=== PATIENT | female | born 1975 | race Caucasian/White ===

== ENCOUNTER 2016-10-18 16:51 | Inpatient (IN) | payer OTHER ==
[~2016-10-18] VITALS: Ht 160 cm; Wt 109.1 kg
[~2016-10-18 16:51] MED LIST: DOXY100T35 PO; DTRSR/10 PO; FLUO20CA36 PO; GLCSR/500 PO; GLIP-199 PO; MOME50SP5; MULT1CHW18 PO; NORGTAB3 PO; PANT40TA2 PO; TPRSR/50 PO; ZCR40 PO
[2016-10-18] MEDS ORDERED: NALOXONE HCL 0.4 MG/1 ML VIAL/CARP IV STA (17:04)
[2016-10-18] MEDS ORDERED: SODIUM CHLORIDE 0.9% 1000ML 1,000 ML IV STA (17:04)
[2016-10-18] MEDS ORDERED: METF750T PO (17:51)
[2016-10-18] MEDS ORDERED: OMEP40CA41 PO (17:51)
[2016-10-18] MEDS ORDERED: NVLNI SQ (17:51)
[2016-10-18] MEDS ORDERED: FENO54TA PO (17:51)
[2016-10-18 17:59] LABS: BASO % 0.2 %; BASO ABS # 0.02 K/uL (0-0.2); COMPLETE YES; EOS % 2.4 %; HEMATOCRIT 38.3 % (37-47); IG% 0.3 %; LYMPH % 18.3 %; LYMPH ABS # 2.12 K/uL (1.2-3.4); MEAN CELL VOLUME 92.3 fL (80-100); MEAN CORPUSCULAR HEMOGLOBIN 30.6 pg (25-34); MEAN CORPUSCULAR HGB CONC 33.2 g/dl (32-36); MEAN PLATELET VOLUME 11.4 fL (7.4-10.4); MONO % 5.2 %; NEUT % 73.6 %; PLATELET COUNT 216 K/uL (130-400); RED BLOOD COUNT 4.15 M/uL (4.2-5.4); WHITE BLOOD COUNT 11.59 K/uL (4.8-10.8)
[2016-10-18 18:03] LABS: BENZODIAZEPINE, URINE NEG (NEG); COCAINE,URINE NEG (NEG); PHENCYCLIDINE, URINE NEG (NEG)
[2016-10-18 18:09] LABS: INR 1.1 (0.9-1.1); PARTIAL THROMBOPLASTIN RATIO 0.8; PROTHROMBIN TIME (PATIENT) 11.3 SECONDS (9.0-12.0)
--- NOTE | 2016-10-18 18:13 | DIAGNOSTIC IMAGING REPORT ---
SINGLE VIEW CHEST CLINICAL HISTORY: Overdose. FINDINGS: An AP, portable, upright chest radiograph is compared to study dated 10/11/2013 and correlated with chest CT dated 10/09/2011. The examination is severely degraded by portable technique, large body habitus, and patient rotation. The heart appears enlarged. There is mild pulmonary vascular congestion. There are low lung volumes. Bibasilar airspace opacities likely represent atelectasis. Trace pleural effusions are suspected. The lungs and pleural spaces are clear. No pneumothorax is seen. The bony thorax is grossly intact. IMPRESSION: 1. Cardiac enlargement with mild pulmonary vascular congestion. 2. Trace pleural effusions are suspected. 3. Low lung volumes with bibasilar airspace opacities. This likely represents atelectasis. Clinical correlation will be required. Electronically signed by: Mike Jacob M.D. 10/18/2016 6:11 PM Dictated Date/Time: 10/18/2016 6:09 PM
[2016-10-18 18:19] LABS: ACETAMINOPHEN < 2 ug/ml (10-30)
[2016-10-18 18:20] LABS: ALT/SGPT 77 U/L (12-78); AST/SGOT 87 U/L (15-37); BLOOD UREA NITROGEN 10 mg/dl (7-18); BUN/CREATININE RATIO 10.1 (10-20); CALCIUM 8.4 mg/dl (8.5-10.1); CARBON DIOXIDE 29 mmol/L (21-32); CHLORIDE 104 mmol/L (98-107); CREATININE 0.95 mg/dl (0.60-1.20); GLUCOSE 261 mg/dl (70-99); POTASSIUM 3.8 mmol/L (3.5-5.1); SODIUM 141 mmol/L (136-145)
[2016-10-18 18:25] LABS: ALKALINE PHOSPHATASE 92 U/L (45-117); CKMB/CK RATIO 0.9 (0-3.0)
[2016-10-18 18:34] LABS: PREG INTERNAL NEGATIVE QC NEG CLEAR BACKGROUND; PREG INTERNAL POSITIVE QC POS CONTROL LINE
[2016-10-18] MEDS ORDERED: MAGNESIUM HYDROXIDE SUSP 30 ML UDC PO PRN (19:45)
[2016-10-18] MEDS ORDERED: ONDANSETRON INJ 2 MG/ML 2 ML VIAL IV PRN (19:45)
[2016-10-18] MEDS ORDERED: ACETAMINOPHEN 325 MG TAB PO PRN (19:45)
[2016-10-18] MEDS ORDERED: ALUMINUM/MAGNESIUM/SIMETH (MAALOX MAX) 30 ML UDC PO PRN (19:45)
--- NOTE | 2016-10-18 19:57 | EMERGENCY ROOM VISIT NOTE ---
History Report prepared by Selene: Chase West Under the Supervision of: Dr. Sukhdev Valle D.O. First contact with patient: 16:53 Chief Complaint: OVERDOSE (ACCIDENTAL) Stated Complaint: OVERDOSE, VOMITING History of Present Illness The patient is a 41 year old female who presents to the Emergency Room with complaints of an overdose occurring around 1400. Per the nursing staff, the patient smoked an unknown synthetic marijuana that was given to her by neighbor , and it is called "legal". Per the nursing staff, the patient was found in her home laying down in her own vomit, and she smoked it around 1400. The nursing staff additionally states that the patient is diabetic, and her sugar was 249. Additionally the patient is complaining of heart burn, chest pain, and drowsiness. Source of History: patient, nursing staff Onset: 1400 Position: other (global) Quality: other (overdose) Associated Symptoms: + chest pain, + fatigue Review of Systems See HPI for pertinent positives & negatives. A total of 10 systems reviewed and were otherwise negative. Past Medical & Surgical Medical Problems: (1) Depression (2) Diabetes (3) Drug overdose (4) GERD (gastroesophageal reflux disease) (5) IBS (irritable bowel syndrome) Family History Cancer Diabetes mellitus Heart disease Social History Smoking Status: Never Smoker Alcohol Use: none Marital Status: single Housing Status: lives with family Occupation Status: employed Current/Historical Medications Scheduled Fenofibrate (Tricor), 54 MG PO QPM Fluoxetine HCl (Fluoxetine HCl), 40 MG PO HS Glipizide (Glipizide Er), 10 MG PO DAILY Insulin Human NPH (Novolin N), 28 UNITS SQ BID Metformin Hcl (Glucophage Er), 750 MG PO DAILY Metoprolol Succinate (Metoprolol Succinate ER), 50 MG PO DAILY Omeprazole (Prilosec), 40 MG PO QPM Oxybutynin Chloride (Oxybutynin Chloride ER), 10 MG PO DAILY Simvastatin (Simvastatin), 20 MG PO HS Scheduled PRN Mometasone Furoate (Nasonex), 2 SPRAYS NA DAILY PRN for Allergies Allergies Coded Allergies: Cephalosporins (Verified Allergy, Unknown, ., 10/18/16) Erythromycin (Verified Allergy, Unknown, ., 10/18/16) Propoxyphene (Verified Allergy, Unknown, ., 10/18/16) Codeine (Verified Adverse Reaction, Mild, UPSET STOMACH, 10/18/16) Physical Exam Vital Signs Date Time Temp Pulse Resp B/P Pulse Ox O2 Delivery O2 Flow Rate FiO2 10/18/16 19:53 83 18 125/74 98 Nasal Cannula 3.0 10/18/16 19:07 81 18 99/80 97 Nasal Cannula 3.0 10/18/16 18:07 91 18 104/82 96 Room Air 3.0 10/18/16 17:11 90 10/18/16 17:07 93 Nasal Cannula 3.0 10/18/16 17:03 96 Nasal Cannula 4.0 10/18/16 16:55 36.6 100 18 112/75 88 Room Air Physical Exam CONSTITUTIONAL/VITAL SIGNS: Reviewed / noted above. GENERAL: Sedated but responds to verbal stimuli. Falls asleep easily. Vomit is noted on the patient. Non-toxic in appearance. INTEGUMENTARY: Warm, dry, and [place]. HEAD: Normocephalic. EYES: Pupils are 5mm and sluggish to respond to light. without scleral icterus or trauma. ENT/OROPHARYNX: clear and moist. LYMPHADENOPATHY/NECK: Is supple without lymphadenopathy or meningismus. RESPIRATORY: Lungs clear and equal. CARDIOVASCULAR: Regular rate and rhythm. GI/ABDOMEN: Soft and nontender. No organomegaly or pulsatile mass. No rebound or guarding. Normal bowel sounds. EXTREMITIES: Warm and well perfused. BACK: No CVA tenderness. NEUROLOGICAL: Intact without focal deficits. PSYCHIATRIC: normal affect. MUSCULOSKELETAL: Normally developed with good muscle tone. Medical Decision & Procedures ER Provider Diagnostic Interpretation: X ray results and stated below per my interpretation and radiology interpretation. SINGLE VIEW CHEST CLINICAL HISTORY: Overdose. FINDINGS: An AP, portable, upright chest radiograph is compared to study dated 10/11/2013 and correlated with chest CT dated 10/09/2011. The examination is severely degraded by portable technique, large body habitus, and patient rotation. The heart appears enlarged. There is mild pulmonary vascular congestion. There are low lung volumes. Bibasilar airspace opacities likely represent atelectasis. Trace pleural effusions are suspected. The lungs and pleural spaces are clear. No pneumothorax is seen. The bony thorax is grossly intact. IMPRESSION: 1. Cardiac enlargement with mild pulmonary vascular congestion. 2. Trace pleural effusions are suspected. 3. Low lung volumes with bibasilar airspace opacities. This likely represents atelectasis. Clinical correlation will be required. Electronically signed by: Mike Jacob M.D. 10/18/2016 6:11 PM Dictated Date/Time: 10/18/2016 6:09 PM Laboratory Results 10/18/16 17:39 Red Blood Count 4.15, Mean Corpuscular Volume 92.3, Mean Corpuscular Hemoglobin 30.6, Mean Corpuscular Hemoglobin Concent 33.2, Mean Platelet Volume 11.4, Neutrophils (%) (Auto) 73.6, Lymphocytes (%) (Auto) 18.3, Monocytes (%) (Auto) 5.2, Eosinophils (%) (Auto) 2.4, Basophils (%) (Auto) 0.2, Neutrophils # (Auto) 8.54, Lymphocytes # (Auto) 2.12, Monocytes # (Auto) 0.60, Eosinophils # (Auto) 0.28, Basophils # (Auto) 0.02 10/18/16 17:39 Test 10/18/16 17:30 10/18/16 17:39 Urine Opiates Screen NEG (NEG) Urine Methadone, Qualitative NEG (NEG) Urine Barbiturates NEG (NEG) Urine Phencyclidine (PCP) Level NEG (NEG) Ur Amphetamine/Methamphetamine NEG (NEG) MDMA (Ecstasy) Screen NEG (NEG) Urine Benzodiazepines Screen NEG (NEG) Urine Cocaine Metabolite NEG (NEG) Urine Marijuana (THC) POS (NEG) White Blood Count 11.59 K/uL (4.8-10.8) Red Blood Count 4.15 M/uL (4.2-5.4) Hemoglobin 12.7 g/dL (12.0-16.0) Hematocrit 38.3 % (37-47) Mean Corpuscular Volume 92.3 fL (80-100) Mean Corpuscular Hemoglobin 30.6 pg (25-34) Mean Corpuscular Hemoglobin Concent 33.2 g/dl (32-36) Platelet Count 216 K/uL (130-400) Mean Platelet Volume 11.4 fL (7.4-10.4) Neutrophils (%) (Auto) 73.6 % Lymphocytes (%) (Auto) 18.3 % Monocytes (%) (Auto) 5.2 % Eosinophils (%) (Auto) 2.4 % Basophils (%) (Auto) 0.2 % Neutrophils # (Auto) 8.54 K/uL (1.4-6.5) Lymphocytes # (Auto) 2.12 K/uL (1.2-3.4) Monocytes # (Auto) 0.60 K/uL (0.11-0.59) Eosinophils # (Auto) 0.28 K/uL (0-0.5) Basophils # (Auto) 0.02 K/uL (0-0.2) RDW Standard Deviation 45.7 fL (36.4-46.3) RDW Coefficient of Variation 13.6 % (11.5-14.5) Immature Granulocyte % (Auto) 0.3 % Immature Granulocyte # (Auto) 0.03 K/uL (0.00-0.02) Prothrombin Time 11.3 SECONDS (9.0-12.0) Prothromb Time International Ratio 1.1 (0.9-1.1) Activated Partial Thromboplast Time 21.5 SECONDS (21.0-31.0) Partial Thromboplastin Ratio 0.8 Anion Gap 8.0 mmol/L (3-11) Est Creatinine Clear Calc Drug Dose 82.3 ml/min Estimated GFR () 85.0 Estimated GFR (Non- 73.4 BUN/Creatinine Ratio 10.1 (10-20) Calcium Level 8.4 mg/dl (8.5-10.1) Total Bilirubin 0.3 mg/dl (0.2-1) Direct Bilirubin < 0.1 mg/dl (0-0.2) Aspartate Amino Transf (AST/SGOT) 87 U/L (15-37) Alanine Aminotransferase (ALT/SGPT) 77 U/L (12-78) Alkaline Phosphatase 92 U/L (45-117) Total Creatine Kinase 277 U/L (26-192) Creatine Kinase MB 2.4 ng/ml (0.5-3.6) Creatine Kinase MB Ratio 0.9 (0-3.0) Troponin I < 0.015 ng/ml (0-0.045) Total Protein 6.9 gm/dl (6.4-8.2) Albumin 3.0 gm/dl (3.4-5.0) Lipase 98 U/L (73-393) Human Chorionic Gonadotropin, Qual NEG (NEG) Salicylates Level < 1.7 mg/dl (2.8-20) Acetaminophen Level < 2 ug/ml (10-30) Ethyl Alcohol mg/dL < 3.0 mg/dl (0-3) Laboratory results as stated above per my review. Medications Administered Medications (Trade) Dose Ordered Sig/Sheela Route Start Time Stop Time Status Last Admin Dose Admin Sodium Chloride (Nss 1000ml) 1,000 ml @ 200 mls/hr Q5H STAT IV 10/18/16 17:04 10/18/16 22:03 10/18/16 17:22 200 MLS/HR Naloxone HCl (Narcan Inj) 0.8 mg NOW STAT IV 10/18/16 17:04 10/18/16 17:08 DC 10/18/16 17:22 0.8 MG ECG Indication: other (overdose) Rate (beats per minute): 100 Rhythm: normal sinus Findings: no ectopy, other (No injury) ED Course 1652: Previous medical records were reviewed. The patient was evaluated in room B11. A complete history and physical examination was performed. 1704: Narcan Inj 0.8mg IV, Sodium Chloride 1000 ml @ 200 mls/hr IV 1845: I discussed the patient's case with Dr. Santiago. He is going to evaluate the patient for further treatment 1850: I reevaluated the patient, and she was resting. Medical Decision Differential diagnosis: Etiologies such as metabolic, infection, hypoglycemia, electrolyte abnormalities , cardiac sources, intracerebral event, toxicologic, neurologic, as well as others were entertained. This is a 41-year-old female who presents to the ED with a chief complaint of a possible overdose. The patient states that she smoked something that her neighbor gave her something called "legal". Following this the patient was found on the floor and vomitus around 2 PM. She was brought here by EMS. She was given IV fluids and IV Zofran. Blood sugar here was 249. Pulse ox was 87% on room air. She did complain of some heartburn according to the nurse and EMS. She felt drowsy. The patient's exam reveals 5 mm pupils that were slightly sluggish to reaction. The patient is drowsy and sleepy but awakens to verbal stimuli and answers questions appropriately. She denies any headache or trauma. No abdominal pains or shortness of breath. A twelve-lead EKG reveals normal sinus rhythm. CBC was unremarkable. Tox screen was positive for marijuana. Alcohol is negative. Tylenol salicylates are negative. The patient was told the results of the test. She is still drowsy and becomes hypoxic off of oxygen. She will be seen by the hospitalist service for further inpatient evaluation and care. Consults Time Called: 1839 Consulting Physician: Dr. Santiago Returned Call: [phone] I discussed the patient's case with Dr. Santiago. He is going to evaluate the patient for further treatment Impression Primary Impression: Overdose Additional Impressions: Hypoxia Respiratory failure Scribe Attestation The scribe's documentation has been prepared under my direction and personally reviewed by me in its entirety. I confirm that the note above accurately reflects all work, treatment, procedures, and medical decision making performed by me. Departure Information Dispostion Being Evaluated By Hospitalist Referrals Paramjit Marinelli M.D. (PCP) Problem Qualifiers
[2016-10-18] MEDS: SODIUM CHLORIDE 0.9% 1000ML 1,000 ML IV SCH (20:15)
--- NOTE | 2016-10-18 20:25 | History and Physical ---
History & Physical Date & Time of Service: Oct 18, 2016 at 20:22 Chief Complaint: Overdose, Vomiting Primary Care Physician: Paramjit Marinelli M.D. History of Present Illness Source: patient 41-year-old female with past medical history of diabetes, depression, GERD, IBS presented with an accidental overdose of synthetic marijuana about 2 PM this afternoon. She was found laying in her own vomit and her blood sugar was 249. Currently she is drowsy but is oriented 3. She denies any chest pain, palpitations, shortness of breath, nausea, vomiting, abdominal pain. She said she initially had chest pain on presentation but is now resolved. Denies any headaches, weakness, numbness tingling, hematuria, body aches. Past Medical/Surgical History Medical Problems: (1) Depression Status: Chronic (2) Diabetes Status: Chronic (3) GERD (gastroesophageal reflux disease) Status: Chronic (4) IBS (irritable bowel syndrome) Status: Chronic Family History Cancer Diabetes mellitus Heart disease Social History Smoking Status: Never Smoker Marital Status: single Occupational Status: employed Immunizations History of Influenza Vaccine: Yes History of Tetanus Vaccine?: Yes History of Pneumococcal: No History of Hepatitis B Vaccine: Unknown Allergies Coded Allergies: Cephalosporins (Verified Allergy, Unknown, ., 10/18/16) Erythromycin (Verified Allergy, Unknown, ., 10/18/16) Propoxyphene (Verified Allergy, Unknown, ., 10/18/16) Codeine (Verified Adverse Reaction, Mild, UPSET STOMACH, 10/18/16) Home Medications Scheduled Fenofibrate (Tricor), 54 MG PO QPM Fluoxetine HCl (Fluoxetine HCl), 40 MG PO HS Glipizide (Glipizide Er), 10 MG PO DAILY Insulin Human NPH (Novolin N), 28 UNITS SQ BID Metformin Hcl (Glucophage Er), 750 MG PO DAILY Metoprolol Succinate (Metoprolol Succinate ER), 50 MG PO DAILY Omeprazole (Prilosec), 40 MG PO QPM Oxybutynin Chloride (Oxybutynin Chloride ER), 10 MG PO DAILY Simvastatin (Simvastatin), 20 MG PO HS Scheduled PRN Mometasone Furoate (Nasonex), 2 SPRAYS NA DAILY PRN for Allergies Review of Systems Constitutional: No chills, No fever Eyes: No worsening of vision ENT: No hearing loss Respiratory: No cough, No sputum Cardiovascular: + chest pain (now resolved) Abdomen: + vomiting, No nausea, No pain Genitourinary - Female: No dysuria, No hematuria, No urinary frequency Neurologic: No memory loss Psychiatric: No depression symptoms Endocrine: No fatigue Integumentary: No rash Physical Exam Vital Signs Date Time Temp Pulse Resp B/P Pulse Ox O2 Delivery O2 Flow Rate FiO2 10/18/16 19:53 83 18 125/74 98 Nasal Cannula 3.0 10/18/16 19:07 81 18 99/80 97 Nasal Cannula 3.0 10/18/16 18:07 91 18 104/82 96 Room Air 3.0 10/18/16 17:11 90 10/18/16 17:07 93 Nasal Cannula 3.0 10/18/16 17:03 96 Nasal Cannula 4.0 10/18/16 16:55 36.6 100 18 112/75 88 Room Air General Appearance: WD/WN, no apparent distress Head: normocephalic Eyes: + pertinent finding (dilated pupils, sluggish) ENT: normal ENT inspection, hearing grossly normal Neck: supple Respiratory/Chest: chest non-tender, lungs clear, normal breath sounds, no respiratory distress, no accessory muscle use Cardiovascular: + tachycardia Abdomen/GI: normal bowel sounds, non tender, soft Back: normal inspection Extremities/Musculoskelatal: normal inspection, no pedal edema Neurologic/Psych: + pertinent finding (drowsy) Skin: normal color Diagnostics Laboratory Results Results Past 24 Hours Test 10/18/16 17:30 10/18/16 17:39 Range/Units Urine Opiates Screen NEG NEG Urine Methadone, Qualitative NEG NEG Urine Barbiturates NEG NEG Urine Phencyclidine (PCP) Level NEG NEG Ur Amphetamine/Methamphetamine NEG NEG MDMA (Ecstasy) Screen NEG NEG Urine Benzodiazepines Screen NEG NEG Urine Cocaine Metabolite NEG NEG Urine Marijuana (THC) POS NEG White Blood Count 11.59 4.8-10.8 K/uL Red Blood Count 4.15 4.2-5.4 M/uL Hemoglobin 12.7 12.0-16.0 g/dL Hematocrit 38.3 37-47 % Mean Corpuscular Volume 92.3 80-100 fL Mean Corpuscular Hemoglobin 30.6 25-34 pg Mean Corpuscular Hemoglobin Concent 33.2 32-36 g/dl Platelet Count 216 130-400 K/uL Mean Platelet Volume 11.4 7.4-10.4 fL Neutrophils (%) (Auto) 73.6 % Lymphocytes (%) (Auto) 18.3 % Monocytes (%) (Auto) 5.2 % Eosinophils (%) (Auto) 2.4 % Basophils (%) (Auto) 0.2 % Neutrophils # (Auto) 8.54 1.4-6.5 K/uL Lymphocytes # (Auto) 2.12 1.2-3.4 K/uL Monocytes # (Auto) 0.60 0.11-0.59 K/uL Eosinophils # (Auto) 0.28 0-0.5 K/uL Basophils # (Auto) 0.02 0-0.2 K/uL RDW Standard Deviation 45.7 36.4-46.3 fL RDW Coefficient of Variation 13.6 11.5-14.5 % Immature Granulocyte % (Auto) 0.3 % Immature Granulocyte # (Auto) 0.03 0.00-0.02 K/uL Prothrombin Time 11.3 9.0-12.0 SECONDS Prothromb Time International Ratio 1.1 0.9-1.1 Activated Partial Thromboplast Time 21.5 21.0-31.0 SECONDS Partial Thromboplastin Ratio 0.8 Sodium Level 141 136-145 mmol/L Potassium Level 3.8 3.5-5.1 mmol/L Chloride Level 104 98-107 mmol/L Carbon Dioxide Level 29 21-32 mmol/L Anion Gap 8.0 3-11 mmol/L Blood Urea Nitrogen 10 7-18 mg/dl Creatinine 0.95 0.60-1.20 mg/dl Est Creatinine Clear Calc Drug Dose 82.3 ml/min Estimated GFR () 85.0 Estimated GFR (Non- 73.4 BUN/Creatinine Ratio 10.1 10-20 Random Glucose 261 70-99 mg/dl Calcium Level 8.4 8.5-10.1 mg/dl Total Bilirubin 0.3 0.2-1 mg/dl Direct Bilirubin < 0.1 0-0.2 mg/dl Aspartate Amino Transf (AST/SGOT) 87 15-37 U/L Alanine Aminotransferase (ALT/SGPT) 77 12-78 U/L Alkaline Phosphatase 92 45-117 U/L Total Creatine Kinase 277 26-192 U/L Creatine Kinase MB 2.4 0.5-3.6 ng/ml Creatine Kinase MB Ratio 0.9 0-3.0 Troponin I < 0.015 0-0.045 ng/ml Total Protein 6.9 6.4-8.2 gm/dl Albumin 3.0 3.4-5.0 gm/dl Lipase 98 73-393 U/L Human Chorionic Gonadotropin, Qual NEG NEG Salicylates Level < 1.7 2.8-20 mg/dl Acetaminophen Level < 2 10-30 ug/ml Ethyl Alcohol mg/dL < 3.0 0-3 mg/dl Diagnostic Radiology [~ rep ct add3]] SINGLE VIEW CHEST CLINICAL HISTORY: Overdose. FINDINGS: An AP, portable, upright chest radiograph is compared to study dated 10/11/2013 and correlated with chest CT dated 10/09/2011. The examination is severely degraded by portable technique, large body habitus, and patient rotation. The heart appears enlarged. There is mild pulmonary vascular congestion. There are low lung volumes. Bibasilar airspace opacities likely represent atelectasis. Trace pleural effusions are suspected. The lungs and pleural spaces are clear. No pneumothorax is seen. The bony thorax is grossly intact. IMPRESSION: 1. Cardiac enlargement with mild pulmonary vascular congestion. 2. Trace pleural effusions are suspected. 3. Low lung volumes with bibasilar airspace opacities. This likely represents atelectasis. Clinical correlation will be required. Impression Assessment and Plan Documented By: Lanre Santiago 41-year-old female with past medical history of diabetes, depression, GERD, IBS presented with an accidental overdose of synthetic marijuana about 2 PM this afternoon. She was found laying in her own vomit . Accidental overdose with synthetic marijuana: - Received Narcan in the ER - IV fluids - Electrolytes within normal limits - UDS positive for marijuana - CK elevated at 277, monitor every 8 hours - Zofran for nausea/ vomiting Hyperglycemia: - Blood sugars at 261 - Hold home meds - ISS Depression: Continue fluoxetine GERD: Continue Home meds DVT prophylaxis: SCDs. Full code Disposition: admitted to telemetry Resident Physician Supervision Note: Pt examined independently. I discussed the case with the resident and agree with the findings and plan as documented in the note. Any exceptions or clarifications are listed here: Pt was admittedly semiconscious when I saw her - states that she smoked synthetic marijuana under duress from a persuasive neighbor. She was found unconscious by a boyfriend a few hours later. She appears to be improving and does not display psychosis so that we would consider d/c after a short stay OE Somnolent S1,2 reg CTAB, NT, ND, BS+ NO C/C/E P: Monitor until regains consciousness and we would then consider D/C Placed on sliding scale for DM Cont Fluoxetine for depression Level of Care Telemetry Resuscitation Status FULL RESUSCITATION VTE Prophylaxis VTE Risk Assessment Done? Y/N: Yes Risk Level: Moderate Given or contraindicated: SCD's Resident Tracking Resident Involvement: Resident Care Provided Care Provided: Adult Hospital Medicine Resident Tracking Resident Involvement: Resident Care Provided Care Provided: Adult Hospital Medicine
[2016-10-18] MEDS ORDERED: PHARMACY GLYCEMIC MGMT CONSULT PRN (20:46)
[2016-10-18] MEDS ORDERED: GLUCOSE 40% GEL 15 GM TUBE PO PRN (21:00)
[2016-10-18] MEDS ORDERED: FLUTICASONE PROPIONATE NA SPR 16 GM BTL PRN (21:00)
[2016-10-18] MEDS ORDERED: GLUCOSE 10 TABS/TUBE PO PRN (21:00)
[2016-10-18] MEDS ORDERED: GLUCAGON FOR INJ 1 MG VIAL SQ PRN (21:00)
[2016-10-18] MEDS ORDERED: FLUOXETINE HCL 20 MG CAP PO SCH (21:00)
[2016-10-18] MEDS ORDERED: DEXTROSE 50% 50 ML SYR IV PRN (21:00)
[2016-10-18] MEDS ORDERED: PANTOprazole SOD 40 MG TAB PO SCH (21:00)
[2016-10-18] MEDS ORDERED: SIMVASTATIN 20 MG TAB PO SCH (21:00)
--- NOTE | 2016-10-18 21:11 | Pharmacy Progress Note ---
Glycemic Control Intl Consult Date of Service Oct 18, 2016. Scope Glycemic Pharmacist consulted by Dr Lockhart on 10/18/16 for glycemic control and to write orders per [facility] inpatient glycemic control protocol Objective Weight (Kilograms): 92.100 Accuchecks BSG (last 24hrs): Test 10/18/16 17:39 Random Glucose 261 mg/dl (70-99) Laboratory Data (last 24hrs) HbA1c UNKNOWN, Outdated Item Value Date Time Hemoglobin A1c 8.9 % H 03/06/14 0636 Recent Pertinent Medications Outpatient Anti-diabetic Regimen: * Glipizide ER 10mg PO Daily * NPH 28 units SQ BID * Metformin ER 750mg PO Daily The patient is currently receiving: * Basal insulin: Lantus -- units every -- hours * Correctional Insulin: Novolog Correction per scale ACHS Goal Range: Low -- mg/dL - High -- mg/dL Correction Factor: -- mg/dL/unit * Prandial insulin: Per carb ratio of 1 unit per -- grams CHO consumed * Oral Agents: On Hold for Admission Assessment & Plan ASSESSMENT: * 41yo T2DM female with unknown degree of outpatient control. A1c listed in records is outdated. Will re-order per protocol * Pt is maintained on SQ basal insulin (NPH dosed BID) + 2 oral agents * Pt is NPO & has minimal risk factors for insulin resistance (i.e no infection , steroids, surgery etc)--> reduced insulin dosing may be needed for NPO status. Outpatient basal insulin dosing may be covering some prandial needs * Will start with weight/stress based dosing and titrate based on BSG trends. Weight based dosing is ~ 50% of outpatient dosing which is recommended when pt NPO (recommended to give 50-80% of dose while NPO) * Since degree of outpatient control and true insulin needs are not known, will start basal insulin dosing based off of BSG * Will use weight/stress = 1 when BSG mildly elevated and weight/st=2 when moderate/severe hyperglycemia * ADA & AACE recommend a goal blood sugar range 140-180 mg/dl for the majority of critically ill & non-critically ill patients. However, more stringent targets may be selected in individual cases. Will utilize more stringent goal of 110-140mg/dl based on patient age & minimal comorbidities. PLAN FOR INPATIENT GLYCEMIC CONTROL: * Hold outpatient oral diabetes medications * May try to re-initiate 1-2 days prior to discharge once renal function assessed and PO intake adequate * Basal insulin with Lantus SQ BID - dosing based on BSG * If BSG 120mg/dl or below --> HOLD Lantus * If BSG 121-179mg/dl --> Administer Lantus 10 units (weight, st = 1) * If BSG 180mg/dl or above --> Administer Lantus 15 units (weight, st =2) * NovoLog per scale ACHS or Q6hrs while NPO * Goal Range: Low 110 mg/dL - High 140 mg/dL * Correction Factor: 30 mg/dL/unit * Nutritional / Prandial insulin per carb ratio of 1 unit per 10 grams CHO consumed * Order A1c per protocol * Add A1c to discharge instructions to be communicated to PCP for further outpatient medication adjustments * Please note that the plan above was derived based on current level of insulin resistance and hospital stress. These recommendations are appropriate for inpatient admission only. Plan of care upon discharge will need to be reassessed to avoid potential outpatient hypo/hyperglycemia. Thank you.
[2016-10-18 21:17] VITALS: BP 119/82; PULSE 89; TEMP 36.7; O2SAT 98; BMI 41.4
[2016-10-18] MEDS: INSULIN GLARGINE SOLOSTAR 100 UNITS/ML 3 ML PEN SC SCH (22:03)
[2016-10-18 23:45] VITALS: BP_SYST 98; PULSE 79; TEMP 36.4; O2SAT 98
[2016-10-19] VITALS: O2SAT 97
[2016-10-19] MEDS: INSULIN ASPART 100 UNITS/ML 3 ML PEN SC SCH ×3 (00:20→12:19)
[2016-10-19 03:42] VITALS: BP 111/76; PULSE 81; TEMP 36.6; O2SAT 96
[2016-10-19 04:00] VITALS: O2SAT 95
[2016-10-19] MEDS: SODIUM CHLORIDE 0.9% 1000ML 1,000 ML IV SCH ×2 (04:21→12:16)
[2016-10-19] MEDS: INSULIN GLARGINE SOLOSTAR 100 UNITS/ML 3 ML PEN SC SCH (07:22)
[2016-10-19 07:27] VITALS: BP 119/78; PULSE 67; TEMP 36.6; O2SAT 92
[2016-10-19] MEDS ORDERED: PNEUMOCOCCAL POLYSACCHARIDES 25 MCG/0.5 ML VIAL/SYR IM. ONE (08:00)
[2016-10-19] MEDS ORDERED: PNEUMOCOCCAL ADMINISTRATION CHARGE ONE (08:00)
[2016-10-19] MEDS ORDERED: METOPROLOL SUCC 50MG EXT REL TAB PO SCH (09:00)
[2016-10-19] MEDS ORDERED: OXYBUTYNIN CHLORIDE 5 MG TABCR PO SCH (09:00)
[2016-10-19 10:21] LABS: ESTIMATED AVERAGE GLUCOSE 326 mg/dl; HA1C FLAG Normal (Normal)
--- NOTE | 2016-10-19 11:24 | Discharge Instructions ---
Discharge Instructions Date of Service Oct 19, 2016. Admission Reason for Admission: Drug Overdose Discharge Discharge Diagnosis / Problem: Marijuana overdose Discharge Goals Goal(s): Improve function Activity Recommendations Activity Limitations: resume your previous activity . Instructions / Follow-Up Instructions / Follow-Up Please follow up with your PCP within 1-2 weeks of discharge. Current Hospital Diet Patient's current hospital diet: Diabetes Type 2 Diet Discharge Diet Recommended Diet: Diabetes Type 2 Diet Pending Studies Studies pending at discharge: no Laboratory Results Hemoglobin A1c Test 10/18/16 17:39 Range/Units Estimated Average Glucose 326 mg/dl Hemoglobin A1c 13.0 H 4.5-5.6 % Medical Emergencies . Who to Call and When: Medical Emergencies: If at any time you feel your situation is an emergency, please call 911 immediately. . Non-Emergent Contact Non-Emergency issues call your: Primary Care Provider . . "Provider Documentation" section prepared by Chacho Barroso. VTE Core Measure Inpt VTE Proph given/why not?: SCD's
--- NOTE | 2016-10-19 11:26 | Discharge Summary ---
Discharge Summary Date of Service Oct 19, 2016. (Chacho Barroso MD) Discharge Summary Admission Date: Oct 18, 2016 at 19:46 Discharge Date: Oct 19, 2016 Discharge Disposition: Home Principal Diagnosis: Marijuana overdose Immunizations: Have You Had Influenza Vaccine: Yes History of Tetanus Vaccine?: Yes History of Pneumococcal: No History of Hepatitis B Vaccine: Unknown (Chacho Barroso MD) Medication Reconciliation Continued Medications: Fenofibrate (Tricor) 54 Mg Tab 54 MG PO QPM, #30 Fluoxetine HCl (Fluoxetine HCl) 20 Mg Cap 40 MG PO HS Glipizide (Glipizide Er) 10 Mg Tab 10 MG PO DAILY Insulin Human NPH (Novolin N) 100 Units/Ml Susp 28 UNITS SQ BID, #10 Metformin Hcl (Glucophage Er) 750 Mg Tab 750 MG PO DAILY, #60 Metoprolol Succinate (Metoprolol Succinate ER) 50 Mg Tabcr 50 MG PO DAILY Mometasone Furoate (Nasonex) [place] 2 SPRAYS NA DAILY PRN for Allergies, 0 Refills Omeprazole (Prilosec) 40 Mg Cap 40 MG PO QPM, #30 Oxybutynin Chloride (Oxybutynin Chloride ER) 10 Mg Tabcr 10 MG PO DAILY Simvastatin (Simvastatin) 40 Mg Tab 20 MG PO HS Discharge Exam No acute issues overnight. Fills like she is back to her baseline. Denies suicidal ideation. Physical Exam: General Appearance: WD/WN, no apparent distress ENT: normal ENT inspection Neck: supple, no JVD Respiratory/Chest: chest non-tender, lungs clear, normal breath sounds, no respiratory distress, no accessory muscle use Cardiovascular: regular rate, rhythm, no murmur Abdomen / GI: normal bowel sounds, non tender, soft Extremities: normal inspection, no calf tenderness, normal capillary refill Neurologic/Psychiatric: alert, normal mood/affect, oriented x 3 (Chacho Barroso MD) Hospital Course Mrs Nguyen was admitted overnight for an accidental overdose of synthetic marijuana. She was found laying in her own vomit and her blood sugar was 249. She recovered overnight and is now back to her baseline. Total Time Spent: Less than 30 minutes This includes examination of the patient, discharge planning, medication reconciliation, and communication with other providers. (Chacho Barroso MD) Resident Physician Supervision Note: I interviewed and examined the patient. Discussed with Dr. Barroso and agree with findings and plan as documented in the note. Any exceptions or clarifications are listed here: None Documented By: Alex Erickson feeling better. notes "i smoke pot all the time and that never happens" relates that she believes it was something synthetic. vitals noted, pleasant nad breathing unlabored no pallor or icterus, no neurologic deficits accidental overdose/ingestion -doing better, stable for home. cautioned on dangers of drug abuse, and especially the dangers that we've been seeing from synthetics otherwise as above Total Time Spent: Less than 30 minutes (Alex Erickson, D.O.) Discharge Instructions Please refer to the electronic Patient Visit Report (Discharge Instructions) for additional information. (Chacho Barroso MD) Follow-Up 1-2 weeks with your PCP (Chacho Barroso MD) Additional Copies To Paramjit Marinelli M.D.
[2016-10-19 12:08] VITALS: BP 123/84; PULSE 77; TEMP 36.7; O2SAT 93
[2016-10-19 14:30] VITALS: Ht 160 cm; Wt 109.1 kg
[2016-10-19 14:37] VITALS: BP 123/84; PULSE 77; TEMP 36.7; O2SAT 93
== END 2016-10-19 16:55 | disposition home or self-care (01) | DRG 918 ==
LOC: ENRESERVTM → ENRESERVDT → EDBD 16:51 → C.EDB 16:53 → C.2T 19:46
PROVIDERS: ADMIT Family Medicine; ATTEND Internal Medicine
DX: T40.7X2A Poisoning by cannabis (derivatives), intentional self-harm, initial encounter (principal); R11.2 Nausea with vomiting, unspecified; E11.65 Type 2 diabetes mellitus with hyperglycemia; K21.9 Gastro-esophageal reflux disease without esophagitis; F32.9 Major depressive disorder, single episode, unspecified; Z79.4 Long term (current) use of insulin; Z79.84 Long term (current) use of oral hypoglycemic drugs; Z79.899 Other long term (current) drug therapy

== ENCOUNTER 2020-10-29 14:01 | Observation (INO) ==
[2020-10-29] MEDS ORDERED: SODIUM CHLORIDE 0.9% 1000ML 1,000 ML IV STA (15:20)
[2020-10-29] MEDS ORDERED: VANCOMYCIN HCL 2,000 MG in SODIUM CHLORIDE 0.9% 500 ML IV ONE (15:23)
[2020-10-29] MEDS ORDERED: dexAMETHasone**PF** 10 MG/ML VIAL IV ONE (15:23)
[2020-10-29] MEDS ORDERED: VANCOMYCIN CONSULT ACTIVE PRN (15:23)
[2020-10-29] MEDS ORDERED: KETOROLAC TROMETHAMINE 15 MG/ML VIAL IV ONE (15:24)
[2020-10-29] MEDS ORDERED: LIDOCAINE/EPINEPH/TETRACAINE 1 EA SYR EXT STA (15:24)
--- NOTE | 2020-10-29 16:28 | Emergency Department Note ---
Impression & Plan COVID-19, Hypoxia, Abscess of axilla, left, Hyperglycemia due to type 2 diabetes mellitus ED Provider Note Provider: Bradley Moeller MD DATE OF SERVICE: 10/29/2020 CHIEF COMPLAINT: Weakness, abscess, shortness of breath HISTORY OF PRESENT ILLNESS: Patient is a 45-year-old female with a history of type 2 diabetes, hypertension, GERD, IBS and history of abscesses presenting here today stating that she has been ill with Covid for approximately the past week. 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 She did test this past Wednesday 8 days ago that returned positive. She states 7 days ago she began to experience symptoms with fever myalgias weakness and decreased intake. States she not been eating or drinking well and feels thirsty and dehydrated. Patient states she feels quite short of breath and lives at home by herself. Patient states she did notice a lump in her left axilla similar to prior abscesses at the beginning of October. States able for she talked with her doctors office at [facility] and received a short course for approximately 10 days of Bactrim. Things improved a little bit and then worsened and she states he had significant tenderness in the left armpit. States not significant drainage. States she called and was given another dose of Bactrim yesterday. States she is very weak and fatigued and can barely get around at home and had a friend drive and bring her here. REVIEW OF SYSTEMS: A total of 10 review of systems was obtained and negative except as stated above in the HPI. 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 NECK: Trachea midline. Supple. ENT: Mucous membranes pink and moist. Pharynx without erythema or exudate. LUNGS: Airway patent. No retractions. Breath sounds clear HEART: Regular rate and rhythm. No chest wall tenderness however there is tenderness and swelling left axilla and armpit with approximately 2 cm area of fluctuance with an approximate 1 cm area of open wound with some slight yellow purulent discharge. No crepitus or black eschar appreciated. ABDOMEN: Soft and non-tender, without guarding or rebound. SKIN: Acyanotic, warm, dry, without rashes except as otherwise noted above EXTREMITIES: Without swelling, tenderness or deformity NEUROLOGICAL: No focal deficits. No aphasia. No facial droop or slurred speech. Ambulatory. EK beats per normal sinus rhythm. No PVC or PAC. No acute ST segment elevation depression. QTC 490. Normal axis. CONTINUOUS CARDIAC MONITORING: was ordered and showed a heart rate of 80s to 90s bpm in normal sinus rhythm Patient's laboratory studies and imaging reviewed. Differential includes Infection, dehydration, metabolic abnormality, hypo/hype rglycemia, electrolyte disturbance, anemia, hypoxia, cardiac sources, intracerebral event, toxicologic, neurologic, as well as other pathologies. IMPRESSION/MEDICAL DECISION MAKING: Patient resents to complaints. Found to be hypoxic and currently suffering coronavirus. Certainly we can feel he dehydrated. Given some hydration here and a dose of steroids as she is hypoxic on room air. Repeat Covid test sent is previous is unable to be obtained from the outside system from last week. Lower suspicion at this time for PE or acute ACS. Patient blood work obtained. Has been on Bactrim recently for the axillary abscess and somewhat draining here. Some slight pressure expresses some purulence was sent for wound culture. Lactate and cultures obtained. Given fluid hydration and did discuss with pharmacy given a dose of vancomycin and Cipro for broad gram-negative and gram- positive coverage. Does appear to be necrotizing fasciitis. Wound was cleaned by myself with saline and iodine. The wound was already draining and do not feel he needed further extension at this point for I&D. Discussed with the patient need for further care here given her hypoxia and monitoring with the C ovid. Along with this can further monitor improvement of the axillary abscess and infection. Given the elevated blood sugar in the infection concerned small dose of insulin given a discussion with pharmacy. DIAGNOSIS: COVID-19 pneumonia, axillary abscess, hyperglycemia secondary to type 2 diabete s, hypoxia DISPOSITION: Hospitalist will evaluate Patient was agreeable with this plan. Past Med/Surg History Medical History (Updated 10/29/20 @ 19:15 by Bradley Moeller M.D.) Anal fissure Anxiety and depression Diabetes mellitus, type 2 GERD (gastroesophageal reflux disease) Hemangioma LIVER Hx of pancreatitis Hx of sleep apnea Hyperlipidemia Hypertension IBS (irritable bowel syndrome) Internal and external ulcerated hemorrhoids Macular degeneration Surgical History (Updated 10/20/19 @ 15:37 by BEATA Lopez) H/O eye surgery "BAND PLACED IN PUPIL RT EYE" History of bilateral tubal ligation History of colonoscopy (03/2014) History of tooth extraction Hx of cholecystectomy Nasal polyp REMOVED Family History Father Family history of diabetes mellitus Aunt Family hx of colon cancer Social History Smoking Status: Former smoker Second Hand Exposure: Yes; Hx Alcohol Use: No Hx Substance Use: No Preferred Language: Estonian Communication Ability: Effective 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: No Beliefs That Will Affect Care: None marital status: Current Living Situation: Alone current occupational status: employed Feels Safe at Home: Yes Assistive Devices: Contacts and Glasses Allergies Allergies Allergy/AdvReac Type Severity Reaction Status Date / Time cephalexin [From Keflex] Allergy Severe Anaphylaxis Verified 10/29/20 15:05 Cephalosporins Allergy Severe Anaphylaxis Verified 10/29/20 15:05 erythromycin base Allergy Intermediate Hives Verified 10/29/20 15:05 codeine AdvReac Mild UPSET Verified 10/29/20 15:05 STOMACH amoxicillin [From Augmentin] AdvReac Unknown Unknown Verified 10/29/20 15:05 clavulanic acid AdvReac Unknown Unknown Verified 10/29/20 15:05 [From Augmentin] Home Meds Home Medications Medication Instructions Recorded Confirmed metformin [Glucophage] 1,000 mg PO DAILY 04/22/19 10/29/20 omeprazole 40 mg PO DAILY 08/24/19 10/29/20 Lantus Solostar U-100 Insulin 10 unit SUBCUT [facility] 10/29/20 10/29/20 dapagliflozin [Farxiga] 10 mg PO DAILY 10/29/20 10/29/20 enalapril maleate 10 mg PO DAILY 10/29/20 10/29/20 glimepiride 4 mg PO [facility] 10/29/20 10/29/20 hydroxyzine pamoate 50 mg PO 10/29/20 10/29/20 sertraline 100 mg PO 10/29/20 10/29/20 sulfamethoxazole-trimethoprim 1 tab PO BID 10/29/20 10/29/20 Previous Rx's Medication Instructions Recorded diltiazem HCl 60 mg tablet 60 mg PO QID #120 tab 08/06/20 Results & Data (ED) Vital Signs Vital Signs - 24 hr 10/29/20 14:03 10/29/20 14:08 10/29/20 15:47 Temperature 36.2 C L Temperature Source Temporal Artery Scan Pulse Rate 99 H 90 Pulse Rate [Bilateral Apical] Pulse Rate from SpO2 Sensor 90 Respiratory Rate 20 34 H Respiratory Depth Normal Blood Pressure 126/87 134/105 H Blood Pressure [Left Arm] Blood Pressure Mean 100 114 Blood Pressure Mean [Left Arm] Pulse Oximetry 89 L 89 L 93 Oxygen Delivery Method Room Air Room Air Oxygen Flow Rate 2 Sepsis Recent Fever Within 48 Hours No Sepsis New/Unexplained Change in Mental Status N/A Sepsis Action Taken by Nursing No Action Required 10/29/20 15:50 10/29/20 16:00 10/29/20 16:10 Temperature Temperature Source Pulse Rate 92 H 87 88 Pulse Rate [Bilateral Apical] Pulse Rate from SpO2 Sensor 92 H 85 Respiratory Rate 27 H 20 24 Respiratory Depth Blood Pressure 149/101 H Blood Pressure [Left Arm] Blood Pressure Mean 117 Blood Pressure Mean [Left Arm] Pulse Oximetry 92 92 Oxygen Delivery Method Oxygen Flow Rate Sepsis Recent Fever Within 48 Hours Sepsis New/Unexplained Change in Mental Status Sepsis Action Taken by Nursing 10/29/20 16:15 10/29/20 16:16 10/29/20 16:20 Temperature Temperature Source Pulse Rate 86 85 Pulse Rate [Bilateral Apical] Pulse Rate from SpO2 Sensor 87 85 Respiratory Rate 24 23 Respiratory Depth Normal Blood Pressure 114/99 Blood Pressure [Left Arm] Blood Pressure Mean 104 Blood Pressure Mean [Left Arm] Pulse Oximetry 92 93 Oxygen Delivery Method Oxygen Flow Rate Sepsis Recent Fever Within 48 Hours Sepsis New/Unexplained Change in Mental Status Sepsis Action Taken by Nursing 10/29/20 16:30 10/29/20 16:31 10/29/20 16:40 Temperature Temperature Source Pulse Rate 85 86 85 Pulse Rate [Bilateral Apical] Pulse Rate from SpO2 Sensor 85 86 84 Respiratory Rate 15 15 25 H Respiratory Depth Blood Pressure 141/94 H Blood Pressure [Left Arm] Blood Pressure Mean 109 Blood Pressure Mean [Left Arm] Pulse Oximetry 93 93 94 Oxygen Delivery Method Oxygen Flow Rate Sepsis Recent Fever Within 48 Hours Sepsis New/Unexplained Change in Mental Status Sepsis Action Taken by Nursing 10/29/20 16:46 10/29/20 16:50 10/29/20 17:00 Temperature Temperature Source Pulse Rate 86 91 H 86 Pulse Rate [Bilateral Apical] Pulse Rate from SpO2 Sensor 87 91 H 86 Respiratory Rate 26 H 30 H 23 Respiratory Depth Blood Pressure 138/91 128/96 Blood Pressure [Left Arm] Blood Pressure Mean 106 106 Blood Pressure Mean [Left Arm] Pulse Oximetry 93 93 93 Oxygen Delivery Method Oxygen Flow Rate Sepsis Recent Fever Within 48 Hours Sepsis New/Unexplained Change in Mental Status Sepsis Action Taken by Nursing 10/29/20 17:10 10/29/20 17:20 10/29/20 17:30 Temperature Temperature Source Pulse Rate Pulse Rate [Bilateral Apical] Pulse Rate from SpO2 Sensor 88 83 84 Respiratory Rate Respiratory Depth Blood Pressure Blood Pressure [Left Arm] Blood Pressure Mean Blood Pressure Mean [Left Arm] Pulse Oximetry 94 92 92 Oxygen Delivery Method Oxygen Flow Rate Sepsis Recent Fever Within 48 Hours Sepsis New/Unexplained Change in Mental Status Sepsis Action Taken by Nursing 10/29/20 17:40 10/29/20 17:53 10/29/20 17:54 Temperature Temperature Source Pulse Rate 88 Pulse Rate [Bilateral Apical] Pulse Rate from SpO2 Sensor 83 88 88 Respiratory Rate 21 Respiratory Depth Blood Pressure 143/95 H Blood Pressure [Left Arm] Blood Pressure Mean 111 Blood Pressure Mean [Left Arm] Pulse Oximetry 93 88 L 87 L Oxygen Delivery Method Oxygen Flow Rate Sepsis Recent Fever Within 48 Hours Sepsis New/Unexplained Change in Mental Status Sepsis Action Taken by Nursing 10/29/20 18:00 10/29/20 18:10 10/29/20 18:15 Temperature Temperature Source Pulse Rate 88 85 82 Pulse Rate [Bilateral Apical] Pulse Rate from SpO2 Sensor 87 85 84 Respiratory Rate 17 22 23 Respiratory Depth Blood Pressure 127/87 139/88 Blood Pressure [Left Arm] Blood Pressure Mean 100 105 Blood Pressure Mean [Left Arm] Pulse Oximetry 96 96 96 Oxygen Delivery Method Oxygen Flow Rate Sepsis Recent Fever Within 48 Hours Sepsis New/Unexplained Change in Mental Status Sepsis Action Taken by Nursing 10/29/20 18:20 10/29/20 18:30 10/29/20 18:40 Temperature Temperature Source Pulse Rate 84 84 83 Pulse Rate [Bilateral Apical] Pulse Rate from SpO2 Sensor 85 84 83 Respiratory Rate 21 24 21 Respiratory Depth Blood Pressure 125/92 Blood Pressure [Left Arm] Blood Pressure Mean 103 Blood Pressure Mean [Left Arm] Pulse Oximetry 97 97 98 Oxygen Delivery Method Oxygen Flow Rate Sepsis Recent Fever Within 48 Hours Sepsis New/Unexplained Change in Mental Status Sepsis Action Taken by Nursing 10/29/20 19:32 Temperature Temperature Source Pulse Rate Pulse Rate [Bilateral Apical] 83 Pulse Rate from SpO2 Sensor Respiratory Rate 20 Respiratory Depth Blood Pressure Blood Pressure [Left Arm] 132/92 Blood Pressure Mean Blood Pressure Mean [Left Arm] 105 Pulse Oximetry 97 Oxygen Delivery Method Room Air Oxygen Flow Rate Sepsis Recent Fever Within 48 Hours Sepsis New/Unexplained Change in Mental Status Sepsis Action Taken by Nursing Laboratory Data Result diagrams: 10/29/20 16:09 10/29/20 16:09 Lab Results 10/29/20 10/29/20 10/29/20 Range/Units 15:55 15:55 16:09 WBC 7.70 (4.8-10.8) K/uL RBC 4.96 (4.2-5.4) M/uL Hgb 15.2 (12.0-16.0) g/dL Hct 44.1 (37-47) % MCV 88.9 (80-100) fL MCH 30.6 (25-34) pg MCHC 34.5 (32-36) g/dL RDW Std Deviation 44.3 (36.4-46.3) fL RDW Coeff of Ronak 13.6 (11.5-14.5) % Plt Count 182 (130-400) K/uL MPV 11.1 H (7.4-10.4) fL Immature Gran % (Auto) 0.3 % Neut % (Auto) 67.1 % Lymph % (Auto) 23.0 % Stark % (Auto) 8.4 % Eos % (Auto) 0.8 % Baso % (Auto) 0.4 % Neut # (Auto) 5.17 (1.4-6.5) K/uL Lymph # (Auto) 1.77 (1.2-3.4) K/uL Stark # (Auto) 0.65 H (0.11-0.59) K/uL Eos # (Auto) 0.06 (0-0.5) K/uL Baso # (Auto) 0.03 (0-0.2) K/uL Immature Gran # (Auto) 0.02 (0.00-0.02) K/uL PT (9.0-12.0) Seconds INR (0.9-1.1) Sodium (136-145) mmol/L Potassium (3.5-5.1) mmol/L Chloride (98-107) mmol/L Carbon Dioxide (21-32) mmol/L Anion Gap (3-11) BUN (7-18) mg/dl Creatinine (0.6-1.2) mg/dl Est Cr Clr Drug Dosing ml/min Est GFR ( Amer) Est GFR (Non-Af Amer) BUN/Creatinine Ratio (10-20) Glucose (70-99) mg/dl POC Glucose (70-99) mg/dl Lactate (0.4-2.0) mmol/L Calcium (8.5-10.1) mg/dl Total Bilirubin (0.2-1) mg/dl AST (15-37) U/L ALT (12-78) U/L Alkaline Phosphatase (45-117) U/L Troponin I (0-0.045) ng/ml Total Protein (6.4-8.2) gm/dl Albumin (3.4-5.0) gm/dl Globulin (2.5-4.0) gm/dl Albumin/Globulin Ratio (0.9-2) Beta-Hydroxybutyric Acd (0.2-2.81) mg/dl Procalcitonin (0-0.5) ng/ml COVID-19 Eval Order [facility] at [facility] SARS-CoV-2 (PCR) POSITIVE A* (Negative) Influenza Type A (PCR) Negative (Neg) Influenza Type B (PCR) Negative (Neg) RSV (RT-PCR) Negative (Neg) 10/29/20 10/29/20 10/29/20 Range/Units 16:09 16:09 16:09 WBC (4.8-10.8) K/uL RBC (4.2-5.4) M/uL Hgb (12.0-16.0) g/dL Hct (37-47) % MCV (80-100) fL MCH (25-34) pg MCHC (32-36) g/dL RDW Std Deviation (36.4-46.3) fL RDW Coeff of Ronak (11.5-14.5) % Plt Count (130-400) K/uL MPV (7.4-10.4) fL Immature Gran % (Auto) % Neut % (Auto) % Lymph % (Auto) % Stark % (Auto) % Eos % (Auto) % Baso % (Auto) % Neut # (Auto) (1.4-6.5) K/uL Lymph # (Auto) (1.2-3.4) K/uL Stark # (Auto) (0.11-0.59) K/uL Eos # (Auto) (0-0.5) K/uL Baso # (Auto) (0-0.2) K/uL Immature Gran # (Auto) (0.00-0.02) K/uL PT 10.1 (9.0-12.0) Seconds INR 1.0 (0.9-1.1) Sodium 134 L (136-145) mmol/L Potassium 4.2 (3.5-5.1) mmol/L Chloride 100 (98-107) mmol/L Carbon Dioxide 28 (21-32) mmol/L Anion Gap 6.0 (3-11) BUN 7 (7-18) mg/dl Creatinine 0.72 (0.6-1.2) mg/dl Est Cr Clr Drug Dosing 109.2 ml/min Est GFR ( Amer) 115.6 Est GFR (Non-Af Amer) 99.7 BUN/Creatinine Ratio 9.6 L (10-20) Glucose 356 H* (70-99) mg/dl POC Glucose (70-99) mg/dl Lactate (0.4-2.0) mmol/L Calcium 8.6 (8.5-10.1) mg/dl Total Bilirubin 0.4 (0.2-1) mg/dl AST 54 H (15-37) U/L ALT 49 (12-78) U/L Alkaline Phosphatase 114 (45-117) U/L Troponin I < 0.015 (0-0.045) ng/ml Total Protein 8.0 (6.4-8.2) gm/dl Albumin 2.9 L (3.4-5.0) gm/dl Globulin 5.1 H (2.5-4.0) gm/dl Albumin/Globulin Ratio 0.6 L (0.9-2) Beta-Hydroxybutyric Acd 6.86 H (0.2-2.81) mg/dl Procalcitonin < 0.05 (0-0.5) ng/ml COVID-19 Eval Order SARS-CoV-2 (PCR) (Negative) Influenza Type A (PCR) (Neg) Influenza Type B (PCR) (Neg) RSV (RT-PCR) (Neg) 10/29/20 10/29/20 10/29/20 Range/Units 16:09 17:47 18:47 WBC (4.8-10.8) K/uL RBC (4.2-5.4) M/uL Hgb (12.0-16.0) g/dL Hct (37-47) % MCV (80-100) fL MCH (25-34) pg MCHC (32-36) g/dL RDW Std Deviation (36.4-46.3) fL RDW Coeff of Ronak (11.5-14.5) % Plt Count (130-400) K/uL MPV (7.4-10.4) fL Immature Gran % (Auto) % Neut % (Auto) % Lymph % (Auto) % Stark % (Auto) % Eos % (Auto) % Baso % (Auto) % Neut # (Auto) (1.4-6.5) K/uL Lymph # (Auto) (1.2-3.4) K/uL Stark # (Auto) (0.11-0.59) K/uL Eos # (Auto) (0-0.5) K/uL Baso # (Auto) (0-0.2) K/uL Immature Gran # (Auto) (0.00-0.02) K/uL PT (9.0-12.0) Seconds INR (0.9-1.1) Sodium (136-145) mmol/L Potassium (3.5-5.1) mmol/L Chloride (98-107) mmol/L Carbon Dioxide (21-32) mmol/L Anion Gap (3-11) BUN (7-18) mg/dl Creatinine (0.6-1.2) mg/dl Est Cr Clr Drug Dosing ml/min Est GFR ( Amer) Est GFR (Non-Af Amer) BUN/Creatinine Ratio (10-20) Glucose (70-99) mg/dl POC Glucose 340 H* 302 H* (70-99) mg/dl Lactate 1.2 (0.4-2.0) mmol/L Calcium (8.5-10.1) mg/dl Total Bilirubin (0.2-1) mg/dl AST (15-37) U/L ALT (12-78) U/L Alkaline Phosphatase (45-117) U/L Troponin I (0-0.045) ng/ml Total Protein (6.4-8.2) gm/dl Albumin (3.4-5.0) gm/dl Globulin (2.5-4.0) gm/dl Albumin/Globulin Ratio (0.9-2) Beta-Hydroxybutyric Acd (0.2-2.81) mg/dl Procalcitonin (0-0.5) ng/ml COVID-19 Eval Order SARS-CoV-2 (PCR) (Negative) Influenza Type A (PCR) (Neg) Influenza Type B (PCR) (Neg) RSV (RT-PCR) (Neg) Administered Medications Miscellaneous Information (Vancomycin Consult Active) 1 ea N/A UD PRN PRN Reason: Consult Stop: 11/28/20 15:22 Last Admin: 10/29/20 15:59 Dose: 1 ea Documented by: [id number] Discontinued Medications Ciprofloxacin (Ciprofloxacin 500 Mg Tab) 500 mg PO NOW STA Stop: 10/29/20 16:32 Last Admin: 10/29/20 16:39 Dose: 500 mg Documented by: [id number] Dexamethasone Sodium Phosphate (DexamethasonePf 10 Mg/Ml Vial) 6 mg IV NOW ONE Stop: 10/29/20 15:24 Last Admin: 10/29/20 15:57 Dose: 6 mg Documented by: [id number] Sodium Chloride (Nss 1000ml) 1,000 mls @ 999 mls/hr IV .Q1H1M STA Stop: 10/29/20 16:20 Last Infusion: 10/29/20 17:08 Dose: 999 mls/hr Documented by: [id number] Admin: 10/29/20 15:56 Dose: 999 mls/hr Documented by: [id number] Vancomycin HCl 2,000 mg/ (Sodium Chloride) 540 mls @ 200 mls/hr IV NOW ONE Stop: 10/29/20 18:04 Last Infusion: 10/29/20 18:44 Dose: 200 mls/hr Documented by: [id number] Admin: 10/29/20 15:57 Dose: 200 mls/hr Documented by: [id number] Sodium Chloride (Nss 1000ml) 1,000 mls @ 999 mls/hr IV .Q1H1M ONE Stop: 10/29/20 18:24 Last Infusion: 10/29/20 19:26 Dose: 0 mls/hr Documented by: [id number] Admin: 10/29/20 17:52 Dose: 999 mls/hr Documented by: [id number] Insulin Aspart (Insulin Aspart Per Unit) 8 units SC NOW STA Stop: 10/29/20 17:30 Last Admin: 10/29/20 17:49 Dose: 8 units Documented by: [id number] Cosigned by: [id number] Insulin Human Regular (Novolin-R Insulin Per Unit Charge) 4 units IV NOW STA Stop: 10/29/20 17:25 Last Admin: 10/29/20 17:48 Dose: 4 units Documented by: [id number] Cosigned by: [id number] Ketorolac Tromethamine (Ketorolac Tromethamine 15 Mg/Ml Vial) 10 mg IV NOW ONE Stop: 10/29/20 15:25 Last Admin: 10/29/20 15:57 Dose: 10 mg Documented by: [id number] Lidocaine (Lidocaine/Epineph/Tetracaine 1 Ea Syr) 1 ea EXT NOW STA Stop: 10/29/20 15:25 Last Admin: 10/29/20 15:57 Dose: 1 ea Documented by: [id number] Imaging Data Radiologist's Impression: Chest X-Ray 10/29/20 15:20 XR chest 1V portable HISTORY: 45 years-old Female Fever/COVID, hypoxia, L axillary abscess acute fever COMPARISON: Chest radiograph 07/31/2019 TECHNIQUE: Portable AP view of the chest FINDINGS: Cardiac silhouette is enlarged. Patchy multifocal airspace opacities. No pneumothorax or large pleural effusion. Bones appear grossly intact. IMPRESSION: Multifocal airspace opacities suggestive of pneumonia. ACT 112: Negative or not required by law. The above report was generated using voice recognition software. It may contain grammatical, syntax or spelling errors. Electronically signed by: Aamir Burch M.D. 10/29/2020 4:55 PM Discharge Plan Visit Data Chief Complaint: Arm Pain Stated Complaint: PAIN IN ARMPIT ED Provider: Sunni,Bradley T Discharge Problem: COVID-19, Hypoxia, Abscess of axilla, left, Hyperglycemia due to type 2 diabetes mellitus Forms Stand Alone Forms: My [facility] Prescriptions Prescriptions: No Action diltiazem HCl 60 mg tablet 60 mg PO QID Qty: 120 RF: 3 omeprazole 40 mg capsule,delayed release(DR/EC) 40 mg PO DAILY RF: 0 metformin [Glucophage] 1,000 mg tablet 1,000 mg PO DAILY RF: 0 enalapril maleate 10 mg tablet 10 mg PO DAILY RF: 0 sulfamethoxazole-trimethoprim 800-160 mg tablet 1 tab PO BID RF: 0 glimepiride 4 mg tablet 4 mg PO QAM RF: 0 Farxiga 10 mg tablet 10 mg PO DAILY RF: 0 sertraline 100 mg tablet 100 mg PO HS RF: 0 hydroxyzine pamoate 50 mg capsule 50 mg PO HS RF: 0 Lantus Solostar U-100 Insulin 100 unit/mL (3 mL) insulin pen 10 unit SUBCUT QAM RF: 0 Discharge Problem: Hyperglycemia due to type 2 diabetes mellitus Qualifiers: 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
[2020-10-29] MEDS ORDERED: CIPROFLOXACIN 500 MG TAB PO STA (16:31)
[2020-10-29 16:46] LABS: Basophils # (auto) 0.03 K/uL (0-0.2); Basophils % (auto) 0.4 %; Eosinophils # (auto) 0.06 K/uL (0-0.5); Eosinophils % (auto) 0.8 %; Hematocrit (blood only) 44.1 % (37-47); Hemoglobin 15.2 g/dL (12.0-16.0); Immature Granulocytes # (auto) 0.02 K/uL (0.00-0.02); Immature Granulocytes % (auto) 0.3 %; Lymphocytes # (auto) 1.77 K/uL (1.2-3.4); Mean Corpuscular Hemoglobin 30.6 pg (25-34); Mean Corpuscular Hgb Conc 34.5 g/dL (32-36); Mean Corpuscular Volume 88.9 fL (80-100); Mean Platelet Volume 11.1 fL (7.4-10.4); Monocytes # (auto) 0.65 K/uL (0.11-0.59); Monocytes % (auto) 8.4 %; Neutrophils # (auto) 5.17 K/uL (1.4-6.5); Neutrophils % (auto) 67.1 %; Platelet Count 182 K/uL (130-400); RDW Coefficient of Variation 13.6 % (11.5-14.5); RDW Standard Deviation 44.3 fL (36.4-46.3); Red Blood Count 4.96 M/uL (4.2-5.4)
--- NOTE | 2020-10-29 16:56 | XRay Report ---
XR chest 1V portable HISTORY: 45 years-old Female Fever/COVID, hypoxia, L axillary abscess acute fever COMPARISON: Chest radiograph 07/31/2019 TECHNIQUE: Portable AP view of the chest FINDINGS: Cardiac silhouette is enlarged. Patchy multifocal airspace opacities. No pneumothorax or large pleura l effusion. Bones appear grossly intact. IMPRESSION: Multifocal airspace opacities suggestive of pneumonia. ACT 112: Negative or not required by law. The above report was generated using voice recognition software. It may contain grammatical, syntax o r spelling errors. Electronically signed by: Aamir Burch M.D. 10/29/2020 4:55 PM
[2020-10-29 17:08] LABS: Prothrombin Time 10.1 Seconds (9.0-12.0)
[2020-10-29 17:14] LABS: Influenza A virus by PCR Negative (Neg); Influenza B virus by PCR Negative (Neg); RSV by PCR Negative (Neg)
[2020-10-29 17:18] LABS: SARS CoV2 RNA(COVID-19) InHosp POSITIVE (Negative)
[2020-10-29 17:22] LABS: Alanine Aminotransferase 49 U/L (12-78); Albumin Globulin Ratio 0.6 (0.9-2); Albumin Level 2.9 gm/dl (3.4-5.0); Alkaline Phosphatase 114 U/L (45-117); Aspartate Aminotransferase 54 U/L (15-37); BUN Creatinine Ratio 9.6 (10-20); Bilirubin,Total 0.4 mg/dl (0.2-1); Blood Urea Nitrogen 7 mg/dl (7-18); Calcium 8.6 mg/dl (8.5-10.1); Carbon Dioxide 28 mmol/L (21-32); Chloride 100 mmol/L (98-107); Creatinine Clr Calc Pharmacy 109.2 ml/min; Est GFR (African American) 115.6; Est GFR (Non-African American) 99.7; Globulin 5.1 gm/dl (2.5-4.0); Glucose 356 mg/dl (70-99); Potassium 4.2 mmol/L (3.5-5.1); Sodium 134 mmol/L (136-145); Troponin I < 0.015 ng/ml (0-0.045)
[2020-10-29] MEDS ORDERED: SODIUM CHLORIDE 0.9% 1000ML 1,000 ML IV ONE (17:24)
[2020-10-29] MEDS ORDERED: NovoLIN-R INSULIN PER UNIT CHARGE IV STA (17:24)
[2020-10-29] MEDS ORDERED: INSULIN ASPART PER UNIT SC STA (17:29)
[2020-10-29 17:36] LABS: Beta-Hydroxybutyrate 6.86 mg/dl (0.2-2.81)
--- NOTE | 2020-10-29 18:40 | History & Physical Report ---
Date of Service October 29, 2020 Assessment & Plan (1) COVID-19: Dexamethasone 6mg IV Isolation precautions Self-prone as able (2) Hypoxia: Aim O2 sats > 90% (3) Abscess of axilla, left: Drained in the ER Continue vancomycin IV and ciprofloxacin pending gram stain and culture results. Consider outpatient dermatology referral for possible hidradenitis supportiva. (4) Sleep apnea: Intolerant to CPAP (5) Hypertension: Continue enalapril 10mg PO daily (notably takes diltiazem PRN for esophageal dysmotility rather than hypertension therefore will hold this as not needed recently) (6) Diabetes mellitus, type 2: HbA1C 8.0 in Aug 2019. Will repeat with AM labs. Didn't take any medication this morning. Hold usual medications except for Farxiga. Consult pharmacy for glycemic control (7) Anxiety and depression: Continue sertraline 100mg HS and hydroxyzine 50mg HS (8) GERD (gastroesophageal reflux disease): Switch omeprazole for pantoprazole per hospital formulary (9) DVT prophylaxis: Lovenox 40mg SQ BID Admission and Anticipated Discharge Date Admission Date: October 29, 2020 History of Present Illness Chief Complaint: COVID-19 symptoms Primary Care Provider: Chris Soliz DO Kristyn Nguyen is a 45-year-old female who presents to the ER with fatigue, productive cough, chills, diarrhea. Initially had loss of appetite although just started coming back. Symptoms started 7 days ago. Not yet had any treatment for this. Main reason she came to the ER today is for the fatigue. She was so tired this morning she was unable to get to her regular medications. She lives alone and is concerned about going home at this time. She also notes having a lump under her left axilla that has been getting worse over the last month. Initially trialed course of Bactrim and initially helped but has been getting much worse ever since she stopped. She was diagnosed with an axillary abscess in the ER and this was drained with cultures sent to microbiology. She does a history of SERGIO (reportedly mild per patient) - however intolerant to CPAP. Notable history of diabetes, unknown last HbA1C. In the ER CXR was concerning for multifocal pneumonia and SARS-COV-2 PCR positive. She is hypoxic therefore referred to medicine for admission and ongoing management. Allergies Allergy/AdvReac Type Severity Reaction Status Date / Time cephalexin [From Keflex] Allergy Severe Anaphylaxis Verified 10/29/20 15:05 Cephalosporins Allergy Severe Anaphylaxis Verified 10/29/20 15:05 erythromycin base Allergy Intermediate Hives Verified 10/29/20 15:05 codeine AdvReac Mild UPSET Verified 10/29/20 15:05 STOMACH amoxicillin [From Augmentin] AdvReac Unknown Unknown Verified 10/29/20 15:05 clavulanic acid AdvReac Unknown Unknown Verified 10/29/20 15:05 [From Augmentin] Home Medications Medication Instructions Recorded Confirmed Type metformin [Glucophage] 1,000 mg PO DAILY 04/22/19 10/29/20 History omeprazole 40 mg PO DAILY 08/24/19 10/29/20 History diltiazem HCl 60 mg tablet 60 mg PO QID #120 tab 08/06/20 10/29/20 Rx Lantus Solostar U-100 Insulin 10 unit SUBCUT QAM 10/29/20 10/29/20 History dapagliflozin [Farxiga] 10 mg PO DAILY 10/29/20 10/29/20 History enalapril maleate 10 mg PO DAILY 10/29/20 10/29/20 History glimepiride 4 mg PO QAM 10/29/20 10/29/20 History hydroxyzine pamoate 50 mg PO HS 10/29/20 10/29/20 History sertraline 100 mg PO HS 10/29/20 10/29/20 History sulfamethoxazole-trimethoprim 1 tab PO BID 10/29/20 10/29/20 History Past Med/Surg History Medical History Anal fissure Anxiety and depression Diabetes mellitus, type 2 GERD (gastroesophageal reflux disease) Hemangioma LIVER Hx of pancreatitis Hx of sleep apnea Hyperlipidemia Hypertension IBS (irritable bowel syndrome) Internal and external ulcerated hemorrhoids Macular degeneration Surgical History H/O eye surgery "BAND PLACED IN PUPIL RT EYE" History of bilateral tubal ligation History of colonoscopy (03/2014) History of tooth extraction Hx of cholecystectomy Nasal polyp REMOVED Family History Father Family history of diabetes mellitus Aunt Family hx of colon cancer Social History Smoking Status: Former smoker Smoking End Date: 07/05/20; Second Hand Exposure: No; Do You Dip or Chew Tobacco: No; Hx Alcohol Use: No Hx Substance Use: No Preferred Language: Italian Communication Ability: Effective Career Manager Required: No Beliefs That Will Affect Care: None marital status: Current Living Situation: Alone current occupational status: employed Other Information That Helps Us Care for You: No Feels Safe at Home: Yes Safety Concerns: Feels Safe At This Time Assistive Devices: Oxygen - Continuous Review of Systems Review of Systems: All systems reviewed & are unremarkable except as noted in HPI & below Physical Exam Constitutional: well developed, well nourished and + obese; no acute distress Eyes: + anicteric sclerae; normal pupil size ENMT: Mouth: + dry oral mucous membranes Neck: trachea midline Respiratory: normal respiratory effort, lungs clear to auscultation (poor inspiratory effort) Cardiovascular: RRR, no murmur, no edema Gastrointestinal (Abdomen): normal bowel sounds, soft, nontender, no hepatosplenomegaly Musculoskeletal: no cyanosis or clubbing, extremities motor strength 5/5 Skin: Band aid covering axillary abscess site just drained. Not removed. No surrounding cellulitis. Neurologic: moves all extremities and awake; not confused Psychiatric: A+Ox3, euthymic affect Genitourinary: no CVA tenderness Results & Data Results & Data ([facility]) Vital Signs (Past 12 Hours) Vital Signs Temp Pulse Resp BP Pulse Ox 10/29/20 16:20 85 23 93 10/29/20 16:15 86 24 114/99 92 10/29/20 16:10 88 24 92 10/29/20 16:00 87 20 149/101 H 10/29/20 15:50 92 H 27 H 92 10/29/20 15:47 90 34 H 134/105 H 93 10/29/20 14:08 89 L 10/29/20 14:03 36.2 C L 99 H 20 126/87 89 L Diagnostic Findings XR chest 1V portable IMPRESSION: Multifocal airspace opacities suggestive of pneumonia. Medications Administered ER Medications given: NSS 1L bolus Dexamethasone 6mg IV Vancomycin 2g IV Toradol 10mg IV Ciprofloxacin 500mg PO ECG Indication: chest pain Rate (beats per minute): 81 Rhythm: normal sinus Findings: + other (T wave flattening anterior-inferiorly) Comparison ECG Date: from (Aug 22, 2019) Change: the following changes noted (TW flattening is new) Code Status & VTE Plan Code Status Full VTE Prophylaxis Plan VTE Prophylaxis will be ordered: Yes PG Care Time/CCT Total # of Minutes Spent Total Time Spent with Patient: Total time spent is greater than 50% in coordination of care (as documented) at patient's floor/unit and/or counseling patient: Coding Level of Care Code 55060 Initial Inpt Care Lvl 3 Diagnoses COVID-19 U07.1 Hypoxia R09.02 Abscess of axilla, left L02.412 Sleep apnea G47.30 Hypertension I10 Diabetes mellitus, type 2 E11.9 Anxiety and depression F41.9; F32.9 GERD (gastroesophageal reflux disease) K21.9 DVT prophylaxis Z29.9
[2020-10-29] MEDS ORDERED: POLYETHYLENE (MIRALAX) 17 GM PACK PO PRN (20:24)
[2020-10-29] MEDS ORDERED: ACETAMINOPHEN 325 MG TAB PO PRN (20:24)
[2020-10-29] MEDS ORDERED: ONDANSETRON INJ 2 MG/ML 2 ML VIAL IV PRN (20:24)
[2020-10-29] MEDS ORDERED: PHARMACY GLYCEMIC MGMT CONSULT PRN (20:42)
[2020-10-29] MEDS ORDERED: dilTIAZem HCl 60 MG TAB PO SCH (21:00)
[2020-10-29] MEDS ORDERED: GLUCOSE 10 TABS/TUBE PO PRN (21:00)
[2020-10-29] MEDS ORDERED: CARBOHYDRATES FOR HYPOGLYCEMIA PO PRN (21:00)
[2020-10-29] MEDS ORDERED: GLUCOSE 40% GEL 15 GM TUBE PO PRN (21:00)
[2020-10-29] MEDS ORDERED: GLUCAGON FOR INJ 1 MG VIAL SQ PRN (21:00)
[2020-10-29] MEDS ORDERED: INSULIN ASPART 100 UNITS/ML 3 ML PEN SC ONE (21:00)
[2020-10-29] MEDS ORDERED: DEXTROSE 50% 50 ML SYRINGE IV PRN (21:00)
[2020-10-29] MEDS: INSULIN GLARGINE SOLOSTAR 100 UNITS/ML 3 ML PEN SC SCH (21:36)
--- NOTE | 2020-10-29 21:54 | Pharmacy Report ---
Pharmacy Abx Initial Consult - Date of Service October 29, 2020 - Pharmacy Dosing Scope Date of Consult: 10/29/20 Consultation requested by: Dr. Barroso Pharmacy is consulted to continue IV Vancomycin dosing therapy, order appropriate labs and adjust drug dose/frequency. - Subjective The patient is a 45 year old F admitted on 10/29/20 18:53 with SOB, weakness, Covid positive with (L) axilla abscess. Patient was given PO Cipro and IV Vancomycin in the ED which were both continued by Dr. Barroso. Pharmacy will continue dosing of Vancomycin pending culture of axilla. - Objective Height: 5 ft 4 in Weight: 98.5 kg Vital Signs (Past 12hrs): Vital Signs Temp Pulse Pulse Pulse Resp BP BP 10/29/20 20:26 37 C 81 18 10/29/20 19:32 83 20 132/92 10/29/20 18:40 83 21 10/29/20 18:30 84 24 125/92 10/29/20 18:20 84 21 10/29/20 18:15 82 23 139/88 10/29/20 18:10 85 22 10/29/20 18:00 88 17 127/87 10/29/20 17:54 88 21 143/95 H 10/29/20 17:53 10/29/20 17:40 10/29/20 17:30 10/29/20 17:20 10/29/20 17:10 10/29/20 17:00 86 23 128/96 10/29/20 16:50 91 H 30 H 10/29/20 16:46 86 26 H 138/91 10/29/20 16:40 85 25 H 10/29/20 16:31 86 15 10/29/20 16:30 85 15 141/94 H 10/29/20 16:20 85 23 10/29/20 16:15 86 24 114/99 10/29/20 16:10 88 24 10/29/20 16:00 87 20 149/101 H 10/29/20 15:50 92 H 27 H 10/29/20 15:47 90 34 H 134/105 H 10/29/20 14:08 10/29/20 14:03 36.2 C L 99 H 20 126/87 BP Pulse Ox 10/29/20 20:26 142/97 H 95 10/29/20 19:32 97 04/27/21 18:40 98 10/29/20 18:30 97 10/29/20 18:20 97 10/29/20 18:15 96 10/29/20 18:10 96 10/29/20 18:00 96 10/29/20 17:54 87 L 10/29/20 17:53 88 L 10/29/20 17:40 93 10/29/20 17:30 92 10/29/20 17:20 92 10/29/20 17:10 94 10/29/20 17:00 93 10/29/20 16:50 93 10/29/20 16:46 93 10/29/20 16:40 94 10/29/20 16:31 93 10/29/20 16:30 93 10/29/20 16:20 93 10/29/20 16:15 92 10/29/20 16:10 92 10/29/20 16:00 10/29/20 15:50 92 10/29/20 15:47 93 10/29/20 14:08 89 L 10/29/20 14:03 89 L Lab Results (24hrs): Laboratory Tests (24 Hours) 10/29/20 10/29/20 10/29/20 16:09 16:09 16:09 WBC 7.70 Neut # (Auto) 5.17 Creatinine 0.72 Est Cr Clr Drug Dosing 109.2 Procalcitonin < 0.05 Micro Results: 10/29/20 16:09 Aerobic Blood Culture - Pending Blood Anaerobic Blood Culture - Pending 10/29/20 16:09 Aerobic Blood Culture - Pending Blood Anaerobic Blood Culture - Pending 10/29/20 15:45 Gram Stain - Pending Axilla,Left Wound Culture - Pending - Risk Factors for Resistance * - Assessment & Plan Assessment 45 year old F with (L) axilla abscess Plan Vancomycin IV * Estimated PK Parameters: Vd 0.54 L/kg, Todd 0.095 hr-1, t1/2 7.3 hr * Loading dose: 2000mg (~20 mg/kg) * Maintenance dose: 1500 mg IV (~15 mg/kg) every 8 hours * Goal trough level: at least 15 mcg/mL * Trough level ordered prior to 0400 dose on 10/31/20 * AUC nomogram was utilized for dosing in the patient Pharmacy will continue to follow and will adjust dose/frequency as necessary. Thank you.
[2020-10-29] MEDS ORDERED: FLUCONAZOLE 50 MG TAB PO ONE (21:55)
[2020-10-29] MEDS: SERTRALINE HCL 100 MG TABLET PO SCH (23:57)
[2020-10-29] MEDS: hydrOXYzine HCl 25 MG TAB PO SCH (23:57)
[2020-10-30] MEDS: INSULIN ASPART 100 UNITS/ML 3 ML PEN SC SCH ×6 (00:11→21:03)
[2020-10-30] MEDS ORDERED: INSULIN HUMAN REGULAR PER UNIT 3 UNITS in SYRINGE 2.97 ML IV ONE (00:15)
[2020-10-30] MEDS: VANCOMYCIN HCL 1,500 MG in SODIUM CHLORIDE 0.9% 500 ML IV SCH ×3 (04:22→20:37)
[2020-10-30 08:07] LABS: BUN Creatinine Ratio 16.6 (10-20); Calcium 8.1 mg/dl (8.5-10.1); Creatinine Clr Calc Pharmacy 149.6 ml/min; Est GFR (Non-African American) 113.1; Potassium 4.2 mmol/L (3.5-5.1)
[2020-10-30 08:37] LABS: Basophils # (auto) 0.04 K/uL (0-0.2); Basophils % (auto) 0.5 %; Hematocrit (blood only) 38.3 % (37-47); Hemoglobin 13.1 g/dL (12.0-16.0); Immature Granulocytes # (auto) 0.03 K/uL (0.00-0.02); Immature Granulocytes % (auto) 0.4 %; Lymphocytes # (auto) 1.51 K/uL (1.2-3.4); Lymphocytes % (auto) 19.1 %; Mean Corpuscular Hemoglobin 30.7 pg (25-34); Mean Corpuscular Hgb Conc 34.2 g/dL (32-36); Mean Corpuscular Volume 89.7 fL (80-100); Mean Platelet Volume 10.9 fL (7.4-10.4); Monocytes # (auto) 0.69 K/uL (0.11-0.59); Monocytes % (auto) 8.7 %; Neutrophils # (auto) 5.62 K/uL (1.4-6.5); Neutrophils % (auto) 71.3 %; Platelet Count 182 K/uL (130-400); RDW Coefficient of Variation 13.7 % (11.5-14.5); RDW Standard Deviation 44.9 fL (36.4-46.3); Red Blood Count 4.27 M/uL (4.2-5.4); White Blood Count 7.89 K/uL (4.8-10.8)
[2020-10-30] MEDS: ENALAPRIL MALEATE 10 MG TAB PO SCH (08:47)
[2020-10-30] MEDS: CIPROFLOXACIN 500 MG TAB PO SCH ×2 (08:47→20:40)
[2020-10-30] MEDS: PANTOprazole 40 MG TAB PO SCH (08:47)
[2020-10-30] MEDS: ENOXAPARIN INJ 40 MG/0.4 ML SYR SQ SCH ×2 (08:48→20:41)
[2020-10-30] MEDS: dexAMETHasone 6 MG in SYRINGE 0 ML IV SCH (08:50)
[2020-10-30] MEDS ORDERED: INSULIN HUMAN NPH SC SCH (09:00)
[2020-10-30] MEDS: INSULIN GLARGINE SOLOSTAR 100 UNITS/ML 3 ML PEN SC SCH ×2 (09:01→21:06)
[2020-10-30 10:20] LABS: Estimated Average Glucose 378 mg/dl; Hemoglobin A1C 14.8 % (4.5-5.6)
--- NOTE | 2020-10-30 13:23 | Pharmacy Report ---
Pharmacy Glycemic Short Note 2 - Date of Service October 30, 2020 - Glycemic Short BSG Results (Last 24 hours): 10/29/20 10/29/20 10/29/20 16:09 17:47 18:47 Glucose 356 H* POC Glucose 340 H* 302 H* 10/29/20 10/29/20 10/29/20 20:51 23:52 23:53 Glucose POC Glucose 293 H 333 H* 347 H* 10/30/20 10/30/20 10/30/20 04:16 04:18 06:55 Glucose 265 H POC Glucose 317 H* 302 H* 10/30/20 10/30/20 08:01 12:05 Glucose POC Glucose 244 H 282 H OUTPATIENT ANTIDIABETIC REGIMEN: * Lantus 10 units QAM (per conversation w/ [employer] Weeds And Pest Inspector was taking 4 units/day); metformin 1000 mg daily, Farxiga 10 mg daily, Amaryl 4 mg Daily * A1c 14.8% 10/30/20 ASSESSMENT: * Ms. PAINTER is admitted with COVID-19, left axilla abscess currently on cipro/vancomycin * Per diabetic educator patient reported missing diabetes medications frequently in the past mount d/t feeling unwell, and current A1c is elevated. Reports prior to feeling unwell fasting blood glucose levels were ~160 with 4 units of lantus per day + oral medications * Patient is currently receiving dexamethasone 6 mg IV daily- BSGs have been elevated since admission; utilized ~0.35 units/kg of NPH to help with steroid induced hyperglycemia * Lantus was initiated with 10 units BID- will titrate this up as needed * Novolog parameters were tightened to weight based stress of 3, will tighten as needed with steroids PLAN FOR INPATIENT GLYCEMIC CONTROL: * Hold outpatient oral diabetes medications * Basal insulin * Lantus 10 units this AM, scale up to 20 units (~12% less than full weight based stress of 2 total daily dose) * Bolus insulin * NovoLog per scale ACHS or Q6hrs while NPO * Goal Range: Low 110 mg/dL - High 140 mg/dL * Correction Factor: 15 mg/dL/unit * Nutritional / Prandial insulin per carb ratio of 1 unit per 4.5 grams CHO consumed PLAN FOR DISCHARGE: * A1c 14.8% above goal range <7%. Encourage patient to take her diabetes med ications as prescribed and self-monitoring blood glucose levels several times a day to improve blood glucose. Close follow up with outpatient provider and repeat A1c with improved compliance. Patient can increase lantus to 10 units daily (from 4 units) and titrate up with outpatient provider.
--- NOTE | 2020-10-30 16:09 | Electrocardiogram Report ---
Test Reason : Blood Pressure : / mmHG Vent. Rate : 081 BPM Atrial Rate : 081 BPM P-R Int : 170 ms QRS Dur : 092 ms QT Int : 422 ms P-R-T Axes : 034 037 043 degrees QTc Int : 490 ms Normal sinus rhythm Prolonged QT Abnormal ECG When compared with ECG of 22-AUG-2019 16:56, QRS axis Shifted right Criteria for Inferior infarct are no longer Present Nonspecific T wave abnormality no longer evident in Anterior leads Confirmed by Goran Santo ([id number]) on 10/30/2020 4:09:29 PM Referred By: REFERRED SELF Confirmed By:Goran Santo
--- NOTE | 2020-10-30 21:52 | Hospitalist Progress Note ---
Date of Service October 30, 2020 Assessment & Plan (1) COVID-19: Pneumonia due to coronavirus disease 2019 Patient is improving. Dexamethasone 6mg IV Isolation precautions Self-prone as able (2) Hypoxia: Aim O2 sats > 90% (3) Abscess of axilla, left: Drained in the ER Continue vancomycin IV and ciprofloxacin pending gram stain and culture results. Consider outpatient dermatology referral for possible hidradenitis supportiva. (4) Sleep apnea: Intolerant to CPAP (5) Hypertension: Continue enalapril 10mg PO daily (notably takes diltiazem PRN for esophageal dysmotility rather than hypertension therefore will hold this as not needed recently) (6) Diabetes mellitus, type 2: HbA1C 8.0 in Aug 2019. Will repeat with AM labs. Didn't take any medication this morning. Hold usual medications except for Farxiga. Consult pharmacy for glycemic control (7) Anxiety and depression: Continue sertraline 100mg HS and hydroxyzine 50mg HS (8) GERD (gastroesophageal reflux disease): Switch omeprazole for pantoprazole per hospital formulary (9) DVT prophylaxis: Lovenox 40mg SQ BID Admission and Anticipated Discharge Date Admission Date: October 29, 2020 Subjective Patient reports doing well. She has no new complaints. Review of Systems Review of Systems: All systems reviewed & are unremarkable except as noted in HPI & below Physical Exam Physical Exam: Constitutional: well developed, well nourished and + obese; no acute distress Eyes: + anicteric sclerae; normal pupil size ENMT: Mouth: + dry oral mucous membranes Neck: trachea midline Respiratory: normal respiratory effort, lungs clear to auscultation Cardiovascular: RRR, no murmur, no edema Gastrointestinal (Abdomen): normal bowel sounds, soft, nontender, no hepatosplenomegaly Musculoskeletal: no cyanosis or clubbing, extremities motor strength 5/5 Skin: Band aid covering axillary abscess site just drained. Not removed. No surrounding cellulitis. Neurologic: moves all extremities and awake; not confused Psychiatric: A+Ox3, euthymic affect Genitourinary: no CVA tenderness Results & Data Results & Data ([facility]) Vital Signs (Past 12 Hours) Vital Signs Temp Pulse Resp BP Pulse Ox 10/30/20 16:37 37.0 C 71 18 112/73 91 PG Care Time/CCT Total # of Minutes Spent Total Time Spent with Patient: Total time spent is greater than 50% in coordination of care (as documented) at patient's floor/unit and/or counseling patient: Coding Level of Care Code 96964 Subseq Hosp Care Lvl 2 Diagnoses COVID-19 U07.1 Hypoxia R09.02 Abscess of axilla, left L02.412 Sleep apnea G47.30 Hypertension I10 Diabetes mellitus, type 2 E11.9 Anxiety and depression F41.9; F32.9 GERD (gastroesophageal reflux disease) K21.9 DVT prophylaxis Z29.9 Time Spent (min) 25
[2020-10-30] MEDS: hydrOXYzine HCl 25 MG TAB PO SCH (23:55)
[2020-10-30] MEDS: SERTRALINE HCL 100 MG TABLET PO SCH (23:56)
[2020-10-31] MEDS: INSULIN ASPART 100 UNITS/ML 3 ML PEN SC SCH ×5 (00:24→18:13)
[2020-10-31] MEDS ORDERED: INSULIN HUMAN REGULAR PER UNIT 5 UNITS in SYRINGE 4.95 ML IV ONE (00:30)
[2020-10-31] MEDS ORDERED: VANCOMYCIN TROUGH ONE (03:30)
[2020-10-31] MEDS: VANCOMYCIN HCL 1,500 MG in SODIUM CHLORIDE 0.9% 500 ML IV SCH ×2 (04:15→12:47)
[2020-10-31 04:56] LABS: Creatinine Clr Calc Pharmacy 107.2 ml/min; Est GFR (African American) 111.8; Est GFR (Non-African American) 96.5
[2020-10-31] MEDS: ENOXAPARIN INJ 40 MG/0.4 ML SYR SQ SCH (08:53)
[2020-10-31] MEDS: ENALAPRIL MALEATE 10 MG TAB PO SCH (08:59)
[2020-10-31] MEDS: PANTOprazole 40 MG TAB PO SCH (08:59)
[2020-10-31] MEDS: dexAMETHasone 6 MG in SYRINGE 0 ML IV SCH (08:59)
[2020-10-31] MEDS: CIPROFLOXACIN 500 MG TAB PO SCH (08:59)
[2020-10-31] MEDS ORDERED: INSULIN HUMAN NPH SC SCH (09:00)
[2020-10-31] MEDS: INSULIN GLARGINE SOLOSTAR 100 UNITS/ML 3 ML PEN SC SCH (09:22)
--- NOTE | 2020-10-31 09:34 | Pharmacy Report ---
Pharmacy Glycemic Short Note 2 - Date of Service October 31, 2020 - Glycemic Short BSG Results (Last 24 hours): 10/30/20 10/30/20 10/30/20 12:05 16:35 20:44 POC Glucose 282 H 324 H* 327 H* 10/30/20 10/30/20 10/31/20 20:47 23:53 00:08 POC Glucose 337 H* 381 H* 370 H* 10/31/20 04:12 POC Glucose 257 H OUTPATIENT ANTIDIABETIC REGIMEN: * Lantus 10 units QAM (per conversation w/ Director Of Midwifery/Staff Midwife was taking 4 units/day); metformin 1000 mg daily, Farxiga 10 mg daily, Amaryl 4 mg Daily * A1c 14.8% 10/30/20 ASSESSMENT: 10/31/20 * Pt has received 202 units of insulin over the past 24hrs * 70 units of basal with NPH and Lantus * 132 units of bolus with NovoLog * BSGs 244-381 mg/dl * Patient remains on Dexamethasone 6mg IV daily - will increase NPH * Lantus scale increased last night, continue * Tighten CF/CR 10/30/20 * Ms. PAINTER is admitted with COVID-19, left axilla abscess currently on cipro/vancomycin * Per clinical systems educator patient reported missing diabetes medications frequently in the past mount d/t feeling unwell, and current A1c is elevated. Reports prior to feeling unwell fasting blood glucose levels were ~160 with 4 units of lantus per day + oral medications * Patient is currently receiving dexamethasone 6 mg IV daily- BSGs have been elevated since admission; utilized ~0.35 units/kg of NPH to help with steroid induced hyperglycemia * Lantus was initiated with 10 units BID- will titrate this up as needed * Novolog parameters were tightened to weight based stress of 3, will tighten as needed with steroids PLAN FOR INPATIENT GLYCEMIC CONTROL: * Hold outpatient oral diabetes medications * Basal insulin * Lantus SQ BID * 15 units BSG < 110mg/dl * 20 units BSG 110-180mg/dl * 25 units BSG > 180mg/dl * NPH 55 units SQ daily with IV Dexamethasone * Bolus insulin * NovoLog per scale ACHS or Q6hrs while NPO * Goal Range: Low 110 mg/dL - High 140 mg/dL * Correction Factor: 8 mg/dL/unit * Nutritional / Prandial insulin per carb ratio of 1 unit per 2.5 grams CHO consumed PLAN FOR DISCHARGE: * A1c 14.8% above goal range <7%. Encourage patient to take her diabetes medications as prescribed and self-monitoring blood glucose levels several times a day to improve blood glucose. Close follow up with outpatient provider and repeat A1c with improved compliance. Patient can increase lantus to 10 units daily (from 4 units) and titrate up with outpatient provider.
--- NOTE | 2020-10-31 11:41 | Pharmacy Report ---
Pharmacy Abx Dose Short Note - Date of Service October 31, 2020 - Assessment & Plan Assessment 45 year old F receiving IV Vancomycin for treatment of (L) axilla abscess Day # 3 of antimicrobial therapy No growth on cultures at this time Afebrile Plan Vancomycin * Trough level of 13.8 mcg/mL is just subtherapeutic * Patient dosed on AUC appropriate * Continue dose of 1500 mg IV every 8 hours * Recheck trough level on 11/02 Pharmacy will continue to follow and will adjust dose/frequency as necessary. Thank you.
[2020-11-02] MEDS ORDERED: VANCOMYCIN TROUGH ONE (03:30)
--- NOTE | 2020-11-07 22:42 | Discharge Summary ---
Date of Service October 31, 2020 Admission HPI Per Admitting Provider Kristyn Nguyen is a 45-year-old female who presents to the ER with fatigue, productive cough, chills, diarrhea. Initially had loss of appetite although just started coming back. Symptoms started 7 days ago. Not yet had any treatment for this. Main reason she came to the ER today is for the fatigue. She was so tired this morning she was unable to get to her regular medications. She lives alone and is concerned about going home at this time. She also notes having a lump under her left axilla that has been getting worse over the last month. Initially trialed course of Bactrim and initially helped but has been getting much worse ever since she stopped. She was diagnosed with an axillary abscess in the ER and this was drained with cultures sent to microbiology. She does a history of SERGIO (reportedly mild per patient) - however intolerant to CPAP. Notable history of diabetes, unknown last HbA1C. In the ER CXR was concerning for multifocal pneumonia and SARS-COV-2 PCR positive. She is hypoxic therefore referred to medicine for admission and ongoing management. Principal Diagnosis COVID 19 PNEUMONIA Discharge Exam Constitutional: well developed, well nourished and + obese; no acute distress Eyes: + anicteric sclerae; normal pupil size ENMT: Mouth: + dry oral mucous membranes Neck: trachea midline Respiratory: normal respiratory effort, lungs clear to auscultation Cardiovascular: RRR, no murmur, no edema Gastrointestinal (Abdomen): normal bowel sounds, soft, nontender, no hepatosplenomegaly Musculoskeletal: no cyanosis or clubbing, extremities motor strength 5/5 Skin: Band aid covering axillary abscess site just drained. Not removed. No surrounding cellulitis. Neurologic: moves all extremities and awake; not confused Psychiatric: A+Ox3, euthymic affect Genitourinary: no CVA tenderness Discharge Data Allergies Allergy/AdvReac Type Severity Reaction Status Date / Time cephalexin [From Keflex] Allergy Severe Anaphylaxis Verified 10/29/20 15:05 Cephalosporins Allergy Severe Anaphylaxis Verified 10/29/20 15:05 erythromycin base Allergy Intermediate Hives Verified 10/29/20 15:05 codeine AdvReac Mild UPSET Verified 10/29/20 15:05 STOMACH amoxicillin [From Augmentin] AdvReac Unknown Unknown Verified 10/29/20 15:05 clavulanic acid AdvReac Unknown Unknown Verified 10/29/20 15:05 [From Augmentin] Consultations 10/29/20 17:28 ED Decision to Admit Stat Diabetes Follow up Diabetes Follow-up Needed for HgbA1c >9% Hospital Course (1) COVID-19: Pneumonia due to coronavirus disease 2019 Patient is improving. Dexamethasone 6mg IV will discharge on oral dexamethasone to continue foor total of 10 days recommend discussing return to work with employer. (2) Hypoxia: Aim O2 sats > 90% (3) Abscess of axilla, left: Drained in the ER Continue vancomycin IV and ciprofloxacin pending gram stain and culture results. Consider outpatient dermatology referral for possible hidradenitis supportiva. (4) Sleep apnea: Intolerant to CPAP (5) Hypertension: Continue enalapril 10mg PO daily (notably takes diltiazem PRN for esophageal dysmotility rather than hypertension therefore will hold this as not needed recently) (6) Diabetes mellitus, type 2: HbA1C 8.0 in Aug 2019. Will repeat with AM labs. resume home meds. (7) Anxiety and depression: Continue sertraline 100mg HS and hydroxyzine 50mg HS (8) GERD (gastroesophageal reflux disease): Switch omeprazole for pantoprazole per hospital formulary (9) DVT prophylaxis: Lovenox 40mg SQ BID while in house Total Time Total Time Spent Total Time Spent (In Minutes): 32 Total Time Includes: Examination of the Patient, Discharge Planning and Medication Reconciliation Discharge Plan Discharge Items Patient Disposition: Home - Self-Care Reason For Visit: COVID-19 PNEUMONIA, HYPOXIA, AXILLARY ABSCESS Discharge Diagnosis: COVID 19 pneumonia Activity: Resume your previous activity Non-emergency contact: Primary Care Provider Call non-emergency contact if: you have any medication questions Follow-up/Referrals: Chris Soliz DO [Primary Care Provider] - Diet: Regular Addtl Attending Provider Instructions: Followup with Dermatology for Hydradenitis followup with PCP in 1 week Pending Studies at Discharge: No Stand-Alone Forms: My 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, Work/School Release (Inpt), Smoking Cessation Medications and DC Order Prescriptions: New ciprofloxacin HCl 500 mg Tablet 500 mg PO BID Qty: 20 RF: 0 metronidazole [Flagyl] 500 mg tablet 500 mg PO Q8H 14 Days Qty: 42 RF: 0 dexamethasone [Decadron] 6 mg tablet 6 mg PO DAILY Qty: 7 RF: 0 Continued diltiazem HCl 60 mg tablet 60 mg PO QID Qty: 120 RF: 3 omeprazole 40 mg capsule,delayed release(DR/EC) 40 mg PO DAILY RF: 0 metformin [Glucophage] 1,000 mg tablet 1,000 mg PO DAILY RF: 0 enalapril maleate 10 mg tablet 10 mg PO DAILY RF: 0 glimepiride 4 mg tablet 4 mg PO QAM RF: 0 Farxiga 10 mg tablet 10 mg PO DAILY RF: 0 sertraline 100 mg tablet 100 mg PO HS RF: 0 hydroxyzine pamoate 50 mg capsule 50 mg PO HS RF: 0 Lantus Solostar U-100 Insulin 100 unit/mL (3 mL) insulin pen 10 unit SUBCUT QAM RF: 0 Discontinued sulfamethoxazole-trimethoprim 800-160 mg tablet 1 tab PO BID RF: 0 Discharge Orders: Discharge Order (Routine); Ordered 10/31/20 Ordered By: José Luis Odell/Other Patient Handouts: Metronidazole tablets or capsules, Ciprofloxacin tablets, Dexamethasone tablets Admission Data Admit Date/Time: 10/29/20 18:53 Attending Provider: José Luis Wong Admit Provider: Chacho Barroso Primary Care Provider: Chris Soliz Other Interventions: Discharge Summary Assessment (RN) Last Done: 10/31/20 19:24 Coding Level of Care Code 77615 OBS Care - Discharge Diagnoses COVID-19 U07.1 Hypoxia R09.02 Abscess of axilla, left L02.412 Sleep apnea G47.30 Hypertension I10 Diabetes mellitus, type 2 E11.9 Anxiety and depression F41.9; F32.9 GERD (gastroesophageal reflux disease) K21.9 DVT prophylaxis Z29.9
== END 2020-10-31 19:25 | disposition home or self-care (01) ==
LOC: ED 14:01 → INTOOBSV 18:53 → 3N 18:53 → SUATTDRO 18:53 → 3N 20:04